=== PATIENT | male | born 1930 | race Caucasian/White ===

== ENCOUNTER 2017-06-09 17:22 | Outpatient (CLI) | payer MEDICARE, OTHER | END 2017-06-09 17:23 | disposition home or self-care (01) | LOC: LABBT 17:22 | PROVIDERS: ATTEND Specialist | DX: Z01.818 Encounter for other preprocedural examination (principal); M86.9 Osteomyelitis, unspecified ==

== ENCOUNTER 2017-06-10 10:58 | Day surgery (SDC) | payer MEDICARE, OTHER ==
--- NOTE | 2017-06-09 21:07 | HP ---
HISTORY OF PRESENT ILLNESS: Mr. Donavon Goddard is an 86-year-old male, allergic to CLINDAMYCIN, PEN ICILLIN and meropenem, presents today with exposed bone, left third toe and edema of his foot. He h as a PICC line for ceftriaxone administration at home for recent hip placement emergently. He is fo llowed by Dr. Laguna. He was recently hospitalized on 05/05/2017 to 05/09/2017 for dyspnea with syst olic heart failure managed by Cardiology service and Pulmonary Medicine. During the hospitalization , patient's daughter states that he was noted to have problems with his left third toe, but this was not addressed. His was recently treated for atrial fibrillation, RVR, acute on chronic heart failu re and possible reactive airway disease. On 05/15/2017, Dr. Dutta performed a right total hip a rthroplasty for septic right hip with advanced destructive changes. He is on intravenous antibiotic s for this. He has just finished cephalexin and is on Rocephin IV administered by his daughter. TOBACCO: None. ALCOHOL: None. 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 PAST SURGICAL HISTORY: Back surgery, knee surgery, colon surgery, hand surgery, thoracentesis, ampu tation of his left fourth toe and then I performed amputation of left second toe is performed elsewh ere, hernia repair, bilateral inguinal hernia repair and right carotid endarterectomy. ALLERGIES: CLINDAMYCIN, PENICILLIN and MEROPENEM. SOCIAL HISTORY: Tobacco cessation more than 60 years ago. PHYSICAL EXAMINATION: HEENT: Unremarkable. LUNGS: Clear to auscultation. CARDIAC: Regular rate and rhythm without murmur or gallop. ABDOMEN: Soft and nontender. EXTREMITIES: Unremarkable, deviated left great toe laterally. Left second toe wound well healed, s tatus post remote amputation, partial amputation of the left forth toe, left third toe has eroded ph alanx to the medial skin web space. ASSESSMENT: Osteomyelitis infection, left third toe. PLAN: Amputation of left third toe to the proximal phalanx. We will plan as an outpatient. [facility] health will be called; I asked to see him daily for wound care. He should keep his heels o ff the bed to prevent decubitus. We will give him antibiotics perioperatively and continued IV anti biotics postoperatively per Dr. Laguna. Follow up in my office in 2-3 weeks postoperatively.
[2017-06-10] MEDS ORDERED: Gentamicin 80 MG/2 ML VIAL ONE (12:01)
[2017-06-10] MEDS ORDERED: Fentanyl 100 MCG/2 ML VIAL ONE (12:13)
[2017-06-10] MEDS ORDERED: Bupivacaine HCl 0.5%/Epinephrine 1:200,000/PF 30 ml Vial ONE (12:15)
[2017-06-10] MEDS ORDERED: Ketorolac Tromethamine 30 MG/ML VIAL ONE (13:09)
--- NOTE | 2017-06-10 18:59 | OP ---
DATE OF PROCEDURE: 06/10/2017 PREOPERATIVE DIAGNOSES: Rheumatoid arthritis with osteomyelitis, left third toe with exposed bone, interphalangeal joint. PROCEDURE: Amputation of left third toe through the proximal phalanx. Wound left open to heal by s econdary intention. Good blood supply noted. Home health to visit him tomorrow, begin wound care. He has a PICC line to treat with antibiotics, undergoing, to see Dr. Laguna for other reasons. PROCEDURE IN DETAIL: The patient was taken to the operating room where under intravenous sedation, left lower extremity was prepared with chloraprep, draped in routine fashion. Amputation of left th ird toe was performed with circumferential incision around the third toe with dividing the bone of t he proximal phalanx, resection of the rongeurs and debriding connective tissue with good bleeding no bonita. Hemostasis gained with the cautery. Wound irrigated. Gauze dressing applied for secondary he aling. Home health to see him tomorrow for wound care.
== END 2017-06-10 17:38 | disposition home or self-care (01) ==
LOC: SDC 10:58
PROVIDERS: ATTEND Specialist
PROC: 0Y6U0Z1 Detachment at Left 3rd Toe, High, Open Approach (ICD-10-PCS; principal; 2017-06-10)
DX: M86.8X7 Other osteomyelitis, ankle and foot (principal); I50.42 Chronic combined systolic (congestive) and diastolic (congestive) heart failure; I11.0 Hypertensive heart disease with heart failure; I25.10 Atherosclerotic heart disease of native coronary artery without angina pectoris; I48.91 Unspecified atrial fibrillation; D64.9 Anemia, unspecified; Z98.890 Other specified postprocedural states; Z90.89 Acquired absence of other organs; Z96.1 Presence of intraocular lens; Z96.643 Presence of artificial hip joint, bilateral; Z88.1 Allergy status to other antibiotic agents; Z88.0 Allergy status to penicillin; Z87.891 Personal history of nicotine dependence
CPT/HCPCS: 88305; 88311; J0670; J1580; J1642; J1885; J3010; J3370

== ENCOUNTER 2017-07-11 23:50 | Inpatient (IN) | payer MEDICARE, OTHER ==
[2017-07-12] MEDS ORDERED: methylPREDNISolone Sod Succ/PF 125 MG/2 ML VIAL ONE (00:10)
[2017-07-12 00:40] LABS: #Basophils 0.1 thou/uL (0.0-0.2); #Eosinphils 0.6 thou/uL (0.0-0.7); #Neutrophils 8.4 thou/uL (1.40-6.50); %Basophils 0.5 % (0.0-1.0); %Eosinophils 4.6 % (0.0-10.0); %Lymphocytes 16.8 % (21.0-51.0); %Monocytes 8.3 % (0.0-10.0); Hematocrit 35.2 % (42.0-52.0); Mean Platelet Volume 6.4 fL (7.4-10.4); Red Blood Cell (RBC) Count 3.86 mill/uL (4.70-6.10)
[2017-07-12 00:40] LABS: Modified Allen's Test POSITIVE; Pressure Support 10 cmH2O; Sodium 138 mmol/L (135-148); Vent NO
[2017-07-12 00:41] LABS: Mode BIPAP
[2017-07-12 00:54] LABS: ALT (SGPT) 13 U/L (8-55); AST (SGOT) 18 U/L (5-34); Alkaline Phosphatase 152 U/L (40-150); Anion Gap 16 mmol/L (10-20); BUN (Urea Nitrogen) 38 mg/dL (8.4-25.7); Bilirubin, Total 0.7 mg/dL (0.2-1.2); Calc. Creatinine Clearance 0 mL/min (70-130); Carbon Dioxide 30 mmol/L (23-31); Chloride 100 mmol/L (98-107); Estimated GFR-MDRD 45; Globulin 2.9 g/dL (2.4-3.5)
[2017-07-12 00:58] LABS: Troponin I 0.019 ng/mL (< 0.028)
[2017-07-12] MEDS ORDERED: Cyclobenzaprine 10 MG TAB ONE (03:28)
[2017-07-12] MEDS ORDERED: Ondansetron ODT 4 MG TAB SL PRN (04:24)
[2017-07-12] MEDS ORDERED: Acetaminophen 325 MG TAB PO PRN ×2 (04:24→05:58)
[2017-07-12] MEDS ORDERED: Ondansetron HCl/PF 4 MG/2 ML Vial IVP PRN (04:24)
[2017-07-12] MEDS ORDERED: Lactated Ringer's 1,000 ML IV SCH (04:30)
--- NOTE | 2017-07-12 05:57 | PDOC.EVN ---
Event Note - Event Note Event Note: [id number] h&p dictated 1. Acute COPD Exacerbation 2. HTN 3. AFIB 4. H/O CHF 5. Chronic respiratory failure plan; see orders
[2017-07-12] MEDS ORDERED: Cyclobenzaprine 10 MG TAB PO PRN ×2 (05:58→11:59)
[2017-07-12] MEDS ORDERED: Albuterol Sulfate 1.25 MG/3 ML NEB NEB PRN (06:02)
[2017-07-12 06:23] LABS: #Lymphocytes 0.7 thou/uL (1.20-3.40); #Monocytes 0.1 thou/uL (0.11-0.59); #Neutrophils 5.8 thou/uL (1.40-6.50); %Basophils 0.4 % (0.0-1.0); %Eosinophils 0.5 % (0.0-10.0); %Lymphocytes 10.6 % (21.0-51.0); %Monocytes 1.9 % (0.0-10.0); Hematocrit 32.6 % (42.0-52.0); Mean Platelet Volume 6.3 fL (7.4-10.4); Red Blood Cell (RBC) Count 3.61 mill/uL (4.70-6.10); White Blood Cell (WBC) Count 6.7 thou/uL (4.8-10.8)
[2017-07-12 06:42] LABS: Anion Gap 15 mmol/L (10-20); BUN (Urea Nitrogen) 35 mg/dL (8.4-25.7); Calc. Creatinine Clearance 46 mL/min (70-130); Calcium 10.1 mg/dL (7.8-10.44); Carbon Dioxide 28 mmol/L (23-31); Chloride 101 mmol/L (98-107); Estimated GFR-MDRD 52
[2017-07-12] MEDS: Azithromycin 500 MG in Sodium Chloride 0.9% 250 ML 250 ML IVPB SCH (07:13)
--- NOTE | 2017-07-12 08:28 | RAD ---
CHEST 1 VIEW: Date: 07/12/17 COMPARISON: 06/04/17. HISTORY: Shortness of breath. FINDINGS: Portable upright chest demonstrates sternotomy wires. Normal cardiac silhouette. Pulmonary vessels a nd hilum are normal. Right costophrenic angle is clear. Stable opacification and blunting of left co stophrenic angle. Chronic changes are noted. No pneumothorax. No osseous abnormalities. Suture chain in the right hemithorax is noted. IMPRESSION: Chronic changes. POS: [facility]
[2017-07-12] MEDS ORDERED: FLU VACC TS2017-18 (>65YR) 0.5 ML SYRINGE IM ONE (09:00)
[2017-07-12] MEDS: Lisinopril 2.5 MG TAB PO SCH (10:03)
[2017-07-12] MEDS: Polyethylene Glycol 3350 17 GM Packet PO SCH (10:04)
[2017-07-12] MEDS: Allopurinol 100 MG TAB PO SCH (10:04)
[2017-07-12] MEDS: Aspirin 325 MG TAB PO SCH (10:04)
[2017-07-12] MEDS: Digoxin 0.125 MG TAB PO SCH (10:05)
[2017-07-12] MEDS: Furosemide 40 MG TAB PO SCH (10:08)
[2017-07-12] MEDS ORDERED: Guaifenesin DM 100-10/5 ML UDCUP PO PRN (11:19)
[2017-07-12] MEDS ORDERED: Benzonatate 100 MG CAP PO PRN (11:19)
[2017-07-12] MEDS ORDERED: Polyethylene Glycol 3350 17 GM Packet PO PRN (11:19)
[2017-07-12] MEDS ORDERED: guaiFENesin ER 600 MG TAB PO SCH (12:00)
--- NOTE | 2017-07-12 12:29 | PDOC.EVN ---
Event Note - Event Note Event Note: Pt seen and examined.chart Reviewed in detail. feels much better.breathing easier . VSS. NAD No wheezing.loud rhonchi. c/o muscle twitiching in right leg giving pain in hip. labs reviewed.Cr improving .BNP 165.WBC trending down towards normal. cont nebs, steroids,add muscle relaxant,cough medicine.IS,Mucinex. PCCM recs requested.
[2017-07-12] MEDS ORDERED: Mometasone/Formoterol 120 PUFF INHALER INH SCH (14:15)
[2017-07-12] MEDS: HYDROcodone/Acetaminophen 5/325 mg Tablet PO PRN ×2 (15:54→23:36)
--- NOTE | 2017-07-12 17:28 | HP ---
DATE OF ADMISSION: 07/12/2017 CHIEF COMPLAINT: Dyspnea and cough. HISTORY OF PRESENT ILLNESS: The patient is an 86-year-old male with past medical history of hyperte nsion, AFIB, COPD, CHF, coronary artery disease, chronic respiratory failure, started having cough, with severe dyspnea. The patient tried some breathing treatments in the skilled nursing/skilled and di d not improve, patient was found to have hypoxia with oxygen sats around 70%, so the patient was mario mary on BiPAP and brought to the ER. Upon ER arrival, the patient's dyspnea persisted, so patient wa s given breathing treatments and IV steroids. The patient is currently off BiPAP. The patient isael es any chest pain, denies any palpations. Complains of some chest congestion and cough associated w ith some white sputum production. Denies any fever, denies any chills, denies nausea, and denies vo miting. PAST MEDICAL HISTORY: As per HPI. PAST SURGICAL HISTORY: CABG. SOCIAL HISTORY: Denies smoking, denies alcohol, denies any drugs. Currently living in a skilled unm hospitaling facility due to weakness. FAMILY HISTORY: Positive for heart problems. REVIEW OF SYSTEMS: Constitutional: Denies any fever, denies any chills. Eyes: Denies any vision problems. Ears: Denies any hearing loss. Neck: Denies any neck pain. Cardiovascular System: De nies any chest pain. Denies any palpitations. Respiratory System: Positive for cough and sputum p roduction. Cranial Nerves System: Denies syncope, denies lightheadedness. Psychiatric: Denies an xiety. Integument: Denies any rash. All other review of systems are reviewed and they are negativ e. PHYSICAL EXAMINATION: CONSTITUTIONAL/VITAL SIGNS: At the time of H\T\P performed, blood pressure is 133/69, pulse ox 96%, heart rate 85. GENERAL: This patient appears tired. HEENT: Anterior nares patent. Nose normal. Ears normal. Teeth intact. Tongue is moist. NECK: Supple. No JVD. CARDIOVASCULAR SYSTEM: S1 and S2 present, regular rate and rhythm. No murmurs, no rubs, no gallops . RESPIRATORY SYSTEM: Diminished breath sounds present. Positive for occasional wheezing. No rhonch i. Normal effort. GASTROINTESTINAL: Abdomen is soft, nontender, no guarding, no organomegaly, no masses felt. MUSCULOSKELETAL: No edema. INTEGUMENTARY: No obvious rashes seen. PSYCHIATRIC: Mood appropriate at this time. CRANIAL NERVE SYSTEM: Awake. Follows commands. Speech, clear. Complains of decreased hearing, wh ich was chronic. LABORATORY DATA: At the time of H\T\P performed, white count 12, hemoglobin 11.4, and platelet coun t is 260,000. Blood gas showed pH 7.41, pCO2 44, pO2 131, bicarbonate is 27.5. BMP showed sodium 1 41, potassium 4.5, chloride 100, CO2 of 30, BUN 38, creatinine 1.50. Troponin 0.030. ASSESSMENT AND PLAN: The patient is an 86-year-old male. 1. Acute chronic obstructive pulmonary disease exacerbation. Plan to start patient on breathing tr eatments and IV steroids. Plan to monitor respiratory status closely. 2. Acute bronchitis plus condition. Plan to give Zithromax 500 mg IV daily. We will monitor patient closely. 3. History of hypertension. Monitor blood pressure. Continue blood pressure meds. 4. History of atrial fibrillation. Monitor heart rate closely. Continue home medications. 5. History of chronic respiratory failure. Continue oxygen nasal cannula. Monitor respiratory sta tus closely. Case was discussed in detail with the patient.
[2017-07-12 18:30] LABS: Troponin I 0.034 ng/mL (< 0.028)
[2017-07-12] MEDS: Cyclobenzaprine 10 MG TAB PO PRN (18:36)
[2017-07-12] MEDS: Mometasone/Formoterol 120 PUFF INHALER INH SCH (18:52)
[2017-07-12] MEDS ORDERED: Furosemide 20 MG/2 ML VIAL SLOW IVP SCH (20:00)
[2017-07-12] MEDS ORDERED: Potassium Chloride 20 MEQ TAB PO SCH (20:00)
[2017-07-12] MEDS: Saccharomyces boulardii 250 MG CAP PO SCH (20:32)
[2017-07-12] MEDS: Docusate 100 MG CAP PO SCH (20:32)
[2017-07-12] MEDS: guaiFENesin ER 600 MG TAB PO SCH (20:32)
[2017-07-13] MEDS: Azithromycin 500 MG in Sodium Chloride 0.9% 250 ML 250 ML IVPB SCH (06:03)
[2017-07-13] MEDS: Mometasone/Formoterol 120 PUFF INHALER INH SCH ×2 (07:02→18:34)
[2017-07-13] MEDS: Digoxin 0.125 MG TAB PO SCH (09:24)
[2017-07-13] MEDS: Polyethylene Glycol 3350 17 GM Packet PO SCH (09:24)
[2017-07-13] MEDS: Tamsulosin HCl 0.4 MG CAP PO SCH (09:24)
[2017-07-13] MEDS: Aspirin 325 MG TAB PO SCH (09:24)
[2017-07-13] MEDS: guaiFENesin ER 600 MG TAB PO SCH ×2 (09:24→21:02)
[2017-07-13] MEDS: Lisinopril 2.5 MG TAB PO SCH (09:24)
[2017-07-13] MEDS: Docusate 100 MG CAP PO SCH ×2 (09:24→21:02)
[2017-07-13] MEDS: Allopurinol 100 MG TAB PO SCH (09:26)
[2017-07-13] MEDS: Furosemide 40 MG TAB PO SCH (09:26)
[2017-07-13] MEDS: Saccharomyces boulardii 250 MG CAP PO SCH ×2 (09:27→21:01)
--- NOTE | 2017-07-13 11:29 | PDOC.PN ---
- Subjective Encounter Start Date: 07/13/17 Encounter Start Time: 07:40 Subjective: breathing better, no chest pain - Objective MAR Reviewed: Yes Vital Signs & Weight: Vital Signs (12 hours) Temp Pulse Resp BP BP Pulse Ox 07/13/17 10:21 69 16 07/13/17 09:24 77 161/74 H 07/13/17 08:00 97.6 F 62 20 161/74 H 96 07/13/17 07:02 77 16 07/13/17 06:53 99 07/13/17 06:51 77 16 07/13/17 04:00 96.6 F L 60 20 112/55 L 97 07/13/17 02:21 79 16 98 07/13/17 00:00 97.6 F 83 20 115/55 L 100 Weight Weight 171 lb 8 oz I&O: 07/12/17 07/13/17 07/14/17 06:59 06:59 06:59 Intake Total 1520 Output Total 1625 Balance -105 Result Diagrams: 07/12/17 06:07 07/12/17 06:07 Phys Exam - Physical Examination HEENT: PERRLA, moist MMs Neck: no JVD, supple Respiratory: no wheezing, no rales rhonchi++ Cardiovascular: RRR, no significant murmur Gastrointestinal: soft, non-tender, positive bowel sounds Musculoskeletal: no edema, pulses present Neurological: non-focal, moves all 4 limbs Psychiatric: A&O x 3 Dx/Plan (1) COPD exacerbation Code(s): J44.1 - CHRONIC OBSTRUCTIVE PULMONARY DISEASE W (ACUTE) EXACERBATION Status: Acute (2) Demand ischemia of myocardium Code(s): I24.8 - OTHER FORMS OF ACUTE ISCHEMIC HEART DISEASE Status: Acute (3) Acute respiratory failure with hypoxia Code(s): J96.01 - ACUTE RESPIRATORY FAILURE WITH HYPOXIA Status: Acute (4) CAD (coronary artery disease) Code(s): I25.10 - ATHSCL HEART DISEASE OF [place] CORONARY ARTERY W/O ANG PCTRS Status: Chronic Qualifiers: Coronary Disease-Associated Artery/Lesion type: bypass graft [place] vs. transplanted heart: [place] heart Associated angina: without angina Qualified Code(s): I25.810 - Atherosclerosis of coronary artery bypass graft(s) without angina pectoris (5) CHF (congestive heart failure) Code(s): I50.9 - HEART FAILURE, UNSPECIFIED Status: Chronic Comment: mixed type, ef 45% (6) HTN (hypertension) Code(s): I10 - ESSENTIAL (PRIMARY) HYPERTENSION Status: Chronic Qualifiers: Hypertension type: essential hypertension Qualified Code(s): I10 - Essential (primary) hypertension (7) Mantle cell lymphoma Code(s): C83.10 - MANTLE CELL LYMPHOMA, UNSPECIFIED SITE Status: Chronic Qualifiers: (8) Moderate aortic stenosis by prior echocardiogram Code(s): I35.0 - NONRHEUMATIC AORTIC (VALVE) STENOSIS Status: Chronic - Plan will continue iv steroids, duonebs, empiric zithromax -: mild demand ischemia with trop of 0.03 -: has had recent right hip surgery, PT to mobilize pt per ortho advice -: dc plan in 24-36hrs * . 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" Penicillins Allergy Intermediate Swollen Verified 05/10/17 14:21 Lips meropenem Allergy Rash Verified 05/10/17 14:21 morphine Allergy Verified 07/12/17 08:53 Medications: Current Medications Acetaminophen (Tylenol) 650 mg PO Q4H PRN PRN Reason: Headache/Fever or Pain Hydrocodone Bitart/Acetaminophen (Evans 5/325) 1 tab PO Q4H PRN PRN Reason: Pain Last Admin: 07/12/17 23:36 Dose: 1 tab Albuterol Sulfate (Albuterol Sulfate) 1.25 mg NEB Q2H PRN PRN Reason: Wheezing or Cough Albuterol/Ipratropium (Duoneb) 3 ml NEB [id number] TIMMY Allopurinol (Zyloprim) 200 mg PO DAILY TIMMY Last Admin: 07/13/17 09:26 Dose: 200 mg Aspirin (Aspirin) 325 mg PO DAILY TIMMY Last Admin: 07/13/17 09:24 Dose: 325 mg Benzonatate (Tessalon) 100 mg PO Q8H PRN PRN Reason: Cough Cyclobenzaprine HCl (Flexeril) 5 mg PO TID PRN PRN Reason: Muscle Spasm Last Admin: 07/12/17 18:36 Dose: 5 mg Digoxin (Lanoxin) 0.125 mg PO DAILY [facility] Last Admin: 07/13/17 09:24 Dose: 0.125 mg Docusate Sodium (Colace) 100 mg PO BID [facility] Last Admin: 07/13/17 09:24 Dose: 100 mg Furosemide (Lasix) 40 mg PO DAILY [facility] Last Admin: 07/13/17 09:26 Dose: 40 mg Guaifenesin (Mucinex) 600 mg PO Q12HR [facility] Last Admin: 07/13/17 09:24 Dose: 600 mg Guaifenesin/Dextromethorphan (Robitussin Dm) 5 ml PO Q4H PRN PRN Reason: Cough Azithromycin 500 mg/ Sodium (Chloride) 250 mls @ 250 mls/hr IVPB 0630 [facility] Last Admin: 07/13/17 06:03 Dose: 250 mls Lisinopril (Zestril) 1.25 mg PO DAILY [facility] Last Admin: 07/13/17 09:24 Dose: 1.25 mg Methylprednisolone Sodium Succinate (Solu-Medrol) 40 mg IVP Q6HR [facility] Metoprolol Succinate (Toprol Xl) 12.5 mg PO DAILY [facility] Last Admin: 07/13/17 09:27 Dose: 12.5 mg Mometasone Furoate/Formoterol Fumar (Dulera 100 Mcg/5 Mcg Inhaler) 1 puff INH BID-RT [facility] Last Admin: 07/13/17 07:02 Dose: 1 puff Pantoprazole Sodium (Protonix) 40 mg PO Q24HR [facility] Last Admin: 07/13/17 06:03 Dose: 40 mg Polyethylene Glycol (Miralax) 17 gm PO QAM [facility] Last Admin: 07/13/17 09:24 Dose: 17 gm Polyethylene Glycol (Miralax) 17 gm PO DAILY PRN PRN Reason: Constipation Saccharomyces Boulardii (Florastor) 250 mg PO BID [facility] Last Admin: 07/13/17 09:27 Dose: 250 mg Tamsulosin HCl (Flomax) 0.4 mg PO DAILY [facility] Last Admin: 07/13/17 09:24 Dose: 0.4 mg
[2017-07-13] MEDS: Cyclobenzaprine 10 MG TAB PO PRN (11:58)
[2017-07-13] MEDS: HYDROcodone/Acetaminophen 5/325 mg Tablet PO PRN (11:59)
--- NOTE | 2017-07-13 18:25 | CON ---
DATE OF CONSULTATION: 07/13/2017 HISTORY OF PRESENT ILLNESS: Mr. Goddard is a pleasant patient who is [address] Estuardo esparza with systolic/diastolic heart failure and COPD admitted to hospital for recurrent shortness of allyson ath. The patient came to the hospital yesterday with increasing shortness of breath. He did receive some inhaled bronchodilators and one dose of IV Lasix last night and he says he was breathing somewhat b butch, but still not back to his baseline. Patient was on BiPAP in the initial part of this hospita lization. PAST MEDICAL HISTORY: 1. COPD. 2. Systolic and diastolic heart failure. PAST SURGICAL HISTORY: Previous bypass surgery. SOCIAL HISTORY: Lives in a fpc. No smoking, no alcohol. Lives in a [facility]. FAMILY HISTORY: Positive for coronary disease. REVIEW OF SYSTEMS: Constitutional: Positive for weakness, fatigue. Vision: No changes. Hearing: No changes. Pulmonary: No cough or wheezing. Positive for shortness of breath. Cardiac: Posit stephon for shortness of breath. Gastrointestinal: No nausea, vomiting, diarrhea. Skin: No rashes. Neurologic: No unilateral weakness or numbness. Psychiatric: No unusual depression or anxiety. H ematologic: No unusual bruising. Genitourinary: No burning with urination. Musculoskeletal: No unusual joint pains. PHYSICAL EXAMINATION: GENERAL: A very delightful elderly gentleman, 86 years of age. VITAL SIGNS: His blood pressure is 135/62, pulse 72 and regular. EYES: Sclerae nonicteric. Mouth mucous membranes moist. NECK: Supple, no lymphadenopathy. LUNGS: Clear. No wheezing, rales or rhonchi. CARDIOVASCULAR: Irregularly irregular. Normal S1, normal S2. There is no murmur, rub or gallop. ABDOMEN: Soft, nontender, no hepatosplenomegaly. EXTREMITIES: Warm, dry, no clubbing or cyanosis. There is currently no edema. PERTINENT LABORATORY AND X-RAY FINDINGS: BNP was 165, creatinine is 1.5 and 1.3 cm this morning. T roponin 0.34. ASSESSMENT: 1. Congestive heart failure, systolic and diastolic combined. 2. Chronic obstructive pulmonary disease. 3. Previous bypass surgery. PLAN: 1. We will give one additional dose of Lasix and I gave him one dose last night of furosemide. 2. Dr. Cárdenas to resume patient's care in the morning. ADDENDUM: The patient also is in atrial fibrillation with a slow ventricular response. The heart rate is in t he 80s at times but sometimes slower. We will discontinue metoprolol at this time. Dr. Cárdenas i s to address the issue of whether anticoagulation would be indicated.
[2017-07-13] MEDS ORDERED: Furosemide 20 MG/2 ML VIAL SLOW IVP SCH (18:30)
[2017-07-13] MEDS ORDERED: Ibuprofen 200 MG TAB PO SCH (18:30)
[2017-07-13] MEDS ORDERED: Potassium Chloride 20 MEQ TAB PO SCH (18:30)
[2017-07-14] MEDS: Cyclobenzaprine 10 MG TAB PO PRN ×2 (03:20→15:01)
[2017-07-14] MEDS: HYDROcodone/Acetaminophen 5/325 mg Tablet PO PRN ×2 (03:25→15:01)
[2017-07-14] MEDS: Azithromycin 500 MG in Sodium Chloride 0.9% 250 ML 250 ML IVPB SCH (05:34)
[2017-07-14] MEDS: Mometasone/Formoterol 120 PUFF INHALER INH SCH (06:52)
[2017-07-14 07:25] LABS: #Lymphocytes 0.9 thou/uL (1.20-3.40); #Monocytes 0.3 thou/uL (0.11-0.59); #Neutrophils 8.7 thou/uL (1.40-6.50); %Basophils 0.2 % (0.0-1.0); %Eosinophils 0.2 % (0.0-10.0); %Lymphocytes 9.3 % (21.0-51.0); %Monocytes 2.5 % (0.0-10.0); Hematocrit 30.1 % (42.0-52.0); Mean Platelet Volume 6.5 fL (7.4-10.4); Red Blood Cell (RBC) Count 3.29 mill/uL (4.70-6.10); White Blood Cell (WBC) Count 9.9 thou/uL (4.8-10.8)
[2017-07-14 07:52] LABS: Anion Gap 14 mmol/L (10-20); BUN (Urea Nitrogen) 50 mg/dL (8.4-25.7); Calc. Creatinine Clearance 43 mL/min (70-130); Calcium 9.3 mg/dL (7.8-10.44); Carbon Dioxide 26 mmol/L (23-31); Chloride 102 mmol/L (98-107); Estimated GFR-MDRD 49
[2017-07-14] MEDS ORDERED: predniSONE 20 MG TAB PO SCH (08:00)
[2017-07-14] MEDS: Allopurinol 100 MG TAB PO SCH (08:32)
[2017-07-14] MEDS: Aspirin 325 MG TAB PO SCH (08:41)
[2017-07-14] MEDS: Digoxin 0.125 MG TAB PO SCH (08:41)
[2017-07-14] MEDS: Docusate 100 MG CAP PO SCH (08:42)
[2017-07-14] MEDS: Lisinopril 2.5 MG TAB PO SCH (08:42)
[2017-07-14] MEDS: guaiFENesin ER 600 MG TAB PO SCH (08:42)
[2017-07-14] MEDS: Furosemide 40 MG TAB PO SCH (08:42)
[2017-07-14] MEDS: Saccharomyces boulardii 250 MG CAP PO SCH (08:43)
[2017-07-14] MEDS: Tamsulosin HCl 0.4 MG CAP PO SCH (08:43)
[2017-07-14] MEDS: Polyethylene Glycol 3350 17 GM Packet PO SCH (08:43)
--- NOTE | 2017-07-14 11:36 | CON ---
DATE OF CONSULTATION: 07/14/2017 CONSULTING PHYSICIAN: Hospitalist group. REASON FOR CONSULTATION: Shortness of breath. HISTORY OF PRESENT ILLNESS: The patient is an 86-year-old male who was hospitalized several days ag o with shortness of breath. He had been staying over in rehabilitation after previous hospitalizati on. He has better and feels like he wants to go home now. PAST MEDICAL HISTORY: 1. Remarkable for atrial fibrillation. 2. Congestive heart failure. 3. Coronary artery disease. 4. Chronic respiratory failure requiring oxygen. 5. Asthmatic. 6. Hemothorax after anticoagulation for atrial fibrillation. PAST SURGICAL HISTORY: 1. Left thoracentesis. 2. Right knee surgery. 3. Colon resection. 4. Coronary artery bypass grafting surgery. 5. Right foot surgery. 6. Hernia repair. 7. Carotid endarterectomy. SOCIAL HISTORY: Nonsmoker, does not consume alcohol. ALLERGIES: CLINDAMYCIN, PENICILLIN, MEROPENEM and MORPHINE. MEDICATIONS: Prior to admission, Flomax, Theragran, Tessalon Perles, Robitussin, Protonix, [place], M iraLax, Toprol, ipratropium, albuterol, Lasix, Lanoxin, Colace, aspirin, allopurinol. REVIEW OF SYSTEMS: Otherwise, negative. PHYSICAL EXAMINATION: VITAL SIGNS: Temperature 97.7, pulse 83, blood pressure 155/67, O2 sat 97% on 2 liters. GENERAL: He is awake, alert, and in no distress. HEENT: Unremarkable. NECK: No JVD. LUNGS: Clear. CARDIAC: S1, S2 irregularly irregular. ABDOMEN: Soft. EXTREMITIES: No edema. LABORATORY DATA: Sodium 137, potassium 3.7, BUN 50, creatinine 1.4, glucose 155. White blood cell count 9.9, hematocrit 30, platelet count 246. X-RAY FINDINGS: Chest x-ray showed hyperinflation and he has old chronic changes in the left base, but no overt edema. ASSESSMENT: 1. Reactive airway disease - currently stable with nebulization treatments. 2. History of congestive heart failure, systolic and diastolic. 3. Previous history of left hemothorax. PLAN: I think he is stable enough to go home. He has oxygen, breathing treatments at home. [facility] care per Cardiology.
[2017-07-14 11:50] VITALS: BP 136/66; TEMP 97.6
[2017-07-14 14:17] VITALS: BMI 22.7
--- NOTE | 2017-07-14 14:33 | PDOC.PN ---
- Subjective Encounter Start Date: 07/14/17 Encounter Start Time: 08:40 Subjective: feels good, wants to go home - Objective MAR Reviewed: Yes Vital Signs & Weight: Vital Signs (12 hours) Temp Pulse Pulse Pulse Resp BP BP 07/14/17 14:01 73 15 07/14/17 11:48 97.6 F 82 18 07/14/17 09:25 72 96 157/70 H 07/14/17 08:42 73 155/67 H 07/14/17 08:41 73 07/14/17 08:21 97.7 F 73 18 07/14/17 06:51 68 14 07/14/17 04:00 98.0 F 78 20 BP Pulse Ox Pulse Ox Pulse Ox 07/14/17 14:01 95 07/14/17 11:48 136/66 93 L 07/14/17 09:25 98 90 L 07/14/17 08:42 07/14/17 08:41 07/14/17 08:21 155/67 H 97 07/14/17 06:51 100 07/14/17 04:00 150/70 H 94 L Weight Admit Weight 169 lb 1 oz Weight 167 lb 14.4 oz I&O: 07/13/17 07/14/17 07/15/17 06:59 06:59 06:59 Intake Total 1520 1415 Output Total 1625 2595 Balance -105 -1180 Result Diagrams: 07/14/17 07:10 07/14/17 07:10 Phys Exam - Physical Examination HEENT: PERRLA, moist MMs Neck: no JVD, supple Respiratory: no wheezing, no rales Cardiovascular: RRR, no significant murmur Gastrointestinal: soft, non-tender, positive bowel sounds Musculoskeletal: no edema, pulses present Neurological: non-focal, moves all 4 limbs Psychiatric: A&O x 3 Dx/Plan (1) COPD exacerbation Code(s): J44.1 - CHRONIC OBSTRUCTIVE PULMONARY DISEASE W (ACUTE) EXACERBATION Status: Acute (2) Demand ischemia of myocardium Code(s): I24.8 - OTHER FORMS OF ACUTE ISCHEMIC HEART DISEASE Status: Acute (3) Acute respiratory failure with hypoxia Code(s): J96.01 - ACUTE RESPIRATORY FAILURE WITH HYPOXIA Status: Acute (4) CAD (coronary artery disease) Code(s): I25.10 - ATHSCL HEART DISEASE OF [place] CORONARY ARTERY W/O ANG PCTRS Status: Chronic Qualifiers: Coronary Disease-Associated Artery/Lesion type: bypass graft [place] vs. transplanted heart: [place] heart Associated angina: without angina Qualified Code(s): I25.810 - Atherosclerosis of coronary artery bypass graft(s) without angina pectoris (5) CHF (congestive heart failure) Code(s): I50.9 - HEART FAILURE, UNSPECIFIED Status: Chronic Comment: mixed type, ef 45% (6) HTN (hypertension) Code(s): I10 - ESSENTIAL (PRIMARY) HYPERTENSION Status: Chronic Qualifiers: Hypertension type: essential hypertension Qualified Code(s): I10 - Essential (primary) hypertension (7) Mantle cell lymphoma Code(s): C83.10 - MANTLE CELL LYMPHOMA, UNSPECIFIED SITE Status: Chronic Qualifiers: (8) Moderate aortic stenosis by prior echocardiogram Code(s): I35.0 - NONRHEUMATIC AORTIC (VALVE) STENOSIS Status: Chronic - Plan hemostable -: may dc home if ok with cardiology -: HH needs to reactivated with nursing and PT -: to f/u with (needs to reschedule his appt) * .
--- NOTE | 2017-07-14 14:58 | DIS ---
DATE OF ADMISSION: 07/12/2017 DATE OF DISCHARGE: 07/14/2017 PRIMARY DISCHARGE DIAGNOSES: Chronic obstructive pulmonary disease exacerbation ; acute respiratory failure with hypoxia, resolved; mild congestive heart failure exacerbation with ejection fraction of around 45%; demand ischemia. SECONDARY DISCHARGE DIAGNOSES: Coronary artery disease, hypertension, history of mantle cell lymphoma, moderate aortic stenosis. PROCEDURES DONE DURING HOSPITALIZATION: The patient has had chest x-ray done, which showed chronic changes with no acute infiltrate. Blood cultures x2, no growth. Influenza A and B antigens were negative. H and H 9.5 and 30 and platelet count 246. Discharge BUN and creatinine are 50 and 1.3, troponin I peaking up to 0.03. BNP 165. DISCHARGE MEDICATIONS: Albuterol nebulizer twice daily, allopurinol 200 mg p.o. daily, aspirin 81 mg p.o. daily, Flexeril p.r.n., digoxin 0.125 mg p.o. daily, Colace 100 mg p.o. twice daily, Lasix 20 mg p.o. daily, Chestnut p.r.n. for pain, Toprol-XL 25 mg p.o. daily, Protonix 40 mg p.o. daily, MiraLax 17 grams p.o. daily, Flomax 0.4 mg p.o. daily. ALLERGIES: CLINDAMYCIN, PENICILLIN, MEROPENEM, and MORPHINE. INPATIENT CONSULTS: Dr. Merida for Cardiology and Dr. Rodriguez for Pulmonology. BRIEF COURSE DURING HOSPITALIZATION: Patient initially came in with complaints of shortness of breath and coughing. His initial saturations were 70% on room air and was placed on BiPAP. He was diagnosed with acute on chronic COPD exacerbation and mild CHF exacerbation. The patient was on IV steroids along with gentle diuresis done. He was evaluated by Dr. Merida for Cardiology and Dr. Rodriguez for Pulmonology. The patient has done remarkably well during his brief stay here. This morning he is wanting to go home. He has had history of right hip surgery and toe amputation done few weeks ago and was in rehabilitation prior to going home and then getting hospitalized now. He had mild atrial fibrillation with RVR. He needs to follow up with primary care physician in [address] Merida as advised. The patient also needs to follow up with Dr. Dutta his orthopedic surgeon in 2 weeks or so. He had a followup appointment today, which he is not able to go and needs to reschedule calling Dr. Dutta's office for the same. Please see the [id number] documentation on [facility] for the day of discharge. Addendum: please see event note on 07/17/2017. BRUCE
--- NOTE | 2017-07-16 14:22 | PDOC.EVN ---
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 Informed discharging physician Dr. Montanez.
--- NOTE | 2017-07-17 10:20 | PDOC.EVN ---
Event Note - Event Note Event Note: D/w patients PCP about 1/2 blood cs growing aerobic actinomyces. D/w : its likely contaminant with normal wbc and him not being on current chemo or steroids. 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 If pt were to have signs of sepsis/fever he will need repeat cultures and likely hospitalization. Patient will need to be seen by in his office to see if his foot is healing well, he already has appt with for his right hip on .
== END 2017-07-14 15:55 | disposition home health service (06) | DRG 190 ==
LOC: ERS 23:50 → ERHOLD 07-12 01:44 → 2NO 07-12 04:19 → OBSVTOIN 07-12 15:36
PROVIDERS: ADMIT Internal Medicine; ATTEND Internal Medicine
PROC: 5A09457 Assistance with Respiratory Ventilation, 24-96 Consecutive Hours, Continuous Positive Airway Pressure (ICD-10-PCS; principal; 2017-07-12)
DX: J44.1 Chronic obstructive pulmonary disease with (acute) exacerbation (principal); J96.21 Acute and chronic respiratory failure with hypoxia; I50.43 Acute on chronic combined systolic (congestive) and diastolic (congestive) heart failure; I24.8 Other forms of acute ischemic heart disease; I25.810 Atherosclerosis of coronary artery bypass graft(s) without angina pectoris; C83.10 Mantle cell lymphoma, unspecified site; I35.0 Nonrheumatic aortic (valve) stenosis; J44.0 Chronic obstructive pulmonary disease with (acute) lower respiratory infection; I48.91 Unspecified atrial fibrillation; J20.9 Acute bronchitis, unspecified; I11.0 Hypertensive heart disease with heart failure; Z95.1 Presence of aortocoronary bypass graft; Z88.1 Allergy status to other antibiotic agents; Z88.5 Allergy status to narcotic agent; Z88.0 Allergy status to penicillin; Z99.81 Dependence on supplemental oxygen; Z82.49 Family history of ischemic heart disease and other diseases of the circulatory system
CPT/HCPCS: 36415; 71010; 80048; 80053; 82553; 82805; 83880; 84484; 85025; 87040; 90471; 90682; 93005; 94640; 94664; 96374; A4216; G0008; G8978-GP-CI; G8979-GP-CI; G8980-GP-CI; J0456; J1940; J2920; J2930; J7050; J7506; J7620; Q2036

== ENCOUNTER 2017-08-21 09:54 | Outpatient (CLI) | payer MEDICARE, OTHER ==
[~2017-08-21 09:54] MED LIST: Gadobenate Dimeglumine 529 MG/1 ML (20ML VIAL) ONE
--- NOTE | 2017-08-21 14:36 | RAD ---
LUMBAR SPINE 2 VIEWS: HISTORY: An 86-year-old male with post-laminectomy syndrome. Low back pain. FINDINGS: Exam includes standing flexion and extension lateral views. COMPARISON: 02/03/17. Minimal stable vertical height loss of L1. Generalized spondylosis. No evidence of anterior ore ret rolisthesis. No abnormal translation between flexion and extension. IMPRESSION: Lumbar spondylosis. Stable mild vertical height loss of L1. No abnormal translation. POS: [facility]
--- NOTE | 2017-08-21 15:06 | MRI ---
MRI OF THE LUMBAR SPINE WITH AND WITHOUT CONTRAST: Date: 08/21/17 COMPARISON: Noncontrast enhanced MRI of the lumbar spine performed 01/05/17. HISTORY: Post laminectomy syndrome, weakness, and right-sided leg pain. TECHNIQUE: Multiplanar, multisequence MR imaging of the lumbar spine is provided with and without contrast. FINDINGS: The sagittal STIR imaging demonstrates no focal area of osseous marrow edema. There is mild anterior wedging of the L1 vertebral body suggesting remote fracture. Assuming five lumbar-type vertebral bodies, the conus medullaris terminates at the L1-2 level. T12-L1: Mild bilateral facet hypertrophy. There is disc space narrowing and disc desiccation. There is no sig nificant central canal or neural foraminal stenosis. L1-2: Mild bilateral facet hypertrophy. Intervertebral disc height and signal intensity is within normal li mits with no significant central canal or neural foraminal stenosis. L2-3: Mild bilateral facet hypertrophy. There is disc space narrowing, disc desiccation, and disc bulge wit h no significant central canal or neural foraminal stenosis. L3-4: There is moderate bilateral facet hypertrophy and hypertrophy of the ligamentum flavum with fluid wit hin bilateral facet joints. There is mild right neural foraminal stenosis. No significant left neural foraminal stenosis or central canal stenosis. L4-5: Bilateral laminectomy changes are noted. There is disc space narrowing, disc desiccation, and disc bu lge. There is no central canal stenosis. There is bilateral facet hypertrophy with mild left and mode rate right neural foraminal stenosis. L5-S1: There is bilateral facet hypertrophy. There is disc space narrowing and disc desiccation. There is a left paracentral/left foraminal annular tear. There is no significant central canal or neural foramin al stenosis. The postcontrast imaging demonstrates no abnormal enhancement involving the intervertebral discs or t he imaged osseous structures. However, there is ring enhancing lesion measuring 8.0 mm within the the steve sac, to the right of midline, which appears to be associated with or immediately adjacent to the right S2 nerve root. No additional intrathecal enhancing lesions are noted. The imaged retroperitoneal structures demonstrate no acute findings. When compared to the prior MRI of the lumbar spine performed on 01/05/14, the above described enhanci ng lesion appears to have been present on that exam, unchanged in size, measuring approximately 7.0 m m in craniocaudal dimension. There is a focus of altered signal intensity with the superior posterior aspect of the left iliac win g measuring 1.2 cm, which demonstrates decreased T1 and T2 signal, with no appreciable enhancement, u nchanged since the 2014 exam as well. IMPRESSION: 1. There is an enhancing lesion along the course of and/or emanating from the right nerve root. Stab ility over time suggests a benign etiology. Primary consideration is for a nerve sheath tumor, which would include schwannoma. 2. Degenerative and postoperative changes within the lumbar spine as detailed above, most prominent at L4-5, right greater than left. CODE T. POS: [facility]
== END 2017-08-21 09:55 | disposition home or self-care (01) ==
LOC: SCSMRI 09:54
PROVIDERS: ATTEND Nurse Practitioner Family
DX: M96.1 Postlaminectomy syndrome, not elsewhere classified (principal); M47.896 Other spondylosis, lumbar region; G58.9 Mononeuropathy, unspecified; Z98.890 Other specified postprocedural states
CPT/HCPCS: 72100; 72158; A9579

== ENCOUNTER 2017-11-28 07:21 | Emergency (ER) | payer MEDICARE, OTHER ==
--- NOTE | 2017-11-28 08:50 | RAD ---
UPRIGHT PORTABLE CHEST 1 VIEW: Date: 11/28/17 HISTORY: 87-year-old male with history of chest pain that began this morning. COMPARISON: 07/12/17. FINDINGS: Monitor leads overlie the chest. Inspiration is decreased compared to the prior study. There appear t o be overall stable pleural and parenchymal opacity changes bilaterally, particularly in the lung bas es, greater on the left side, with some postoperative changes in the right mid chest and biapical ple ural thickening. Postop midline sternotomy. Atherosclerosis of aorta with ectasia. IMPRESSION: Overall stable appearing bilateral pleural and parenchymal opacity changes and postoperative change. No confluent pneumonia, overt edema, or pleural effusion. POS: [facility]
[2017-11-28 08:57] LABS: #Eosinphils 0.1 thou/uL (0.0-0.7); #Lymphocytes 0.9 thou/uL (1.20-3.40); #Monocytes 0.6 thou/uL (0.11-0.59); #Neutrophils 5.4 thou/uL (1.40-6.50); %Basophils 0.6 % (0.0-1.0); %Monocytes 8.3 % (0.0-10.0); %Neutrophils 76.1 % (42.0-75.0); Hemoglobin 11.6 g/dL (14.0-18.0); Mean Corpuscular HGB CONC 32.7 g/dL (32.0-36.0); Mean Corpuscular Hemoglobin 31.2 pg (27.0-31.0); Mean Corpuscular Volume 95.6 fl (80.0-94.0); Mean Platelet Volume 6.1 fL (7.4-10.4); Platelet Count 180 thou/uL (130-400); Red Blood Cell (RBC) Count 3.71 mill/uL (4.70-6.10); White Blood Cell (WBC) Count 7.1 thou/uL (4.8-10.8)
[2017-11-28 09:12] LABS: ALT (SGPT) 13 U/L (8-55); AST (SGOT) 13 U/L (5-34); Albumin 4.1 g/dL (3.4-4.8); Alkaline Phosphatase 121 U/L (40-150); Anion Gap 15 mmol/L (10-20); BUN (Urea Nitrogen) 42 mg/dL (8.4-25.7); Bilirubin, Total 0.4 mg/dL (0.2-1.2); CK (CPK) 51 U/L (30-200); Calc. Creatinine Clearance 0 mL/min (70-130); Calcium 9.6 mg/dL (7.8-10.44); Carbon Dioxide 25 mmol/L (23-31); Chloride 97 mmol/L (98-107); Estimated GFR-MDRD 49; Globulin 2.1 g/dL (2.4-3.5); Glucose 112 mg/dL (83-110); Potassium 4.5 mmol/L (3.5-5.1); Protein, Total 6.2 g/dL (5.8-8.1); Sodium 132 mmol/L (136-145)
[2017-11-28 09:17] LABS: CKMB 3.5 ng/mL (0-6.6); Troponin I 0.012 ng/mL (< 0.028)
[2017-11-28] MEDS ORDERED: HYDROcodone/Acetaminophen 10/325 mg Tablet ONE (09:17)
== END 2017-11-28 11:15 | disposition home or self-care (01) ==
LOC: ERS 07:21 → CCU 07:48 → UNDOADMIN 07:48 → ERS 11:15
DX: B02.9 Zoster without complications (principal); R07.9 Chest pain, unspecified; J44.9 Chronic obstructive pulmonary disease, unspecified; I48.91 Unspecified atrial fibrillation; I25.10 Atherosclerotic heart disease of native coronary artery without angina pectoris; I50.9 Heart failure, unspecified
CPT/HCPCS: 36415; 71045; 80053; 82553; 83880; 84484; 85025; 93005; 94760

== ENCOUNTER 2018-01-19 10:01 | Outpatient (CLI) | payer MEDICARE, OTHER ==
--- NOTE | 2018-01-19 12:31 | ULT ---
RIGHT UPPER QUADRANT ULTRASOUND: Date: 01-19-18 History: Right upper quadrant abdominal pain and nausea. FINDINGS: Left hepatic lobe is partially obscured due to shadowing from adjacent bowel gas. The remainder of th e liver demonstrates a normal sonographic appearance. There is a small amount of echogenic material within the dependent portion of the gallbladder likely related to a small amount of sludge. No gallbladder calculus is seen. There is no gallbladder wall th ickening. The common duct measures 0.5 cm in diameter. The pancreas is obscured by bowel gas. The visualized portion of the IVC and right kidney demonstrate a normal sonographic appearance. The r ight kidney measures 10.3 cm in length. IMPRESSION: Small amount of sludge within the gallbladder lumen, but no gallbladder calculus is seen. The common duct is normal in caliber. POS: [facility]
== END 2018-01-19 10:02 | disposition home or self-care (01) ==
LOC: SCSULT 10:01
PROVIDERS: ATTEND Internal Medicine Geriatric Medicine
DX: R10.11 Right upper quadrant pain (principal); K82.8 Other specified diseases of gallbladder
CPT/HCPCS: 76705

== ENCOUNTER 2018-03-26 10:09 | Outpatient (CLI) | payer MEDICARE, OTHER ==
[2018-03-26] MEDS ORDERED: ISOVUE-370 76%-LOCM 1 ML ONE (13:28)
== END 2018-03-26 10:10 | disposition home or self-care (01) ==
LOC: BICCT 10:09
PROVIDERS: ATTEND Internal Medicine Medical Oncology
DX: C83.18 Mantle cell lymphoma, lymph nodes of multiple sites (principal); D68.9 Coagulation defect, unspecified; R59.0 Localized enlarged lymph nodes; J90 Pleural effusion, not elsewhere classified
CPT/HCPCS: 71260; 74177

== ENCOUNTER 2018-06-01 13:35 | Outpatient (CLI) | payer MEDICARE, OTHER ==
--- NOTE | 2018-06-01 16:39 | RAD ---
LUMBAR SPINE FOUR VIEWS: 06/01/2018 HISTORY: Back pain. COMPARISON: 08/21/2017 FINDINGS: AP and lateral views with flexion and extension are provided. Again noted is a mild wedge-shaped compression fracture at the L1 vertebral body. The degree of heig ht loss is stable from the study in 2017. No new compression fracture is seen. The lateral view is mildly rotated. There is right convex scoliotic curvature of the thoracolumbar spine. There are ost eophytes seen anteriorly in the lower lumbar spine, in addition to facet degenerative changes. No ab normal translational motion is seen between the flexion and extension views of the lumbar spine. Vas cular calcification is seen in the abdominal aorta and involving the iliac arteries. There is a righ t total hip prosthesis, incompletely evaluated or imaged. IMPRESSION: 1. Stable height loss of a wedge shaped compression fracture of the L1 vertebral body. No additiona l compression fracture is seen, and there is no evidence of a subluxation. 2. Multilevel degenerative changes. 3. Osteopenia. 4. Vascular calcification within the abdominal aorta. 5. Laminectomy defects at the L4-L5 level. POS: [facility]
== END 2018-06-01 13:36 | disposition home or self-care (01) ==
LOC: TBSIIMAG 13:35
PROVIDERS: ATTEND Surgery
DX: M47.26 Other spondylosis with radiculopathy, lumbar region (principal); S32.010D Wedge compression fracture of first lumbar vertebra, subsequent encounter for fracture with routine healing; M85.88 Other specified disorders of bone density and structure, other site; I70.0 Atherosclerosis of aorta; Z98.890 Other specified postprocedural states
CPT/HCPCS: 72110

== ENCOUNTER 2018-06-17 08:22 | Outpatient (CLI) | payer MEDICARE, OTHER ==
--- NOTE | 2018-06-17 10:43 | MRI ---
MRI OF THE LUMBAR SPINE WITH AND WITHOUT CONTRAST: Date: 06-17-18 Comparison: 08-21-17 Technique: Multiplanar, multisequence pre and post contrast enhanced MRI images were obtained of the lumbar spine. History: Lumbar radiculopathy, M54.16. M51.36 intervertebral disc degenerative change. Low back pain, M54.5 FINDINGS: There is an old area of compression fracture in the superior endplate of L1. T12-L1: Unremarkable. L1-2: Mild facet hypertrophy is seen. Central canal and neural foramen are patent. L2-3: Disc desiccation is seen. There is bilateral facet and ligamentum flavum hypertrophy. A small a mount of fluid seen in the L2-3 facet joints. The central canal and neural foramen are patent. L3-4: Disc desiccation is seen. There is a broad based disc protrusion with bilateral severe facet an d ligamentum flavum hypertrophy resulting in moderate to severe L3-4 central and lateral recess steno sis. L4-5: A broad based disc bulge is seen. Bilateral facet and ligamentum flavum hypertrophy is seen. Th e patient has had previous L4 laminectomy changes. No significant degree of central or neural foramin al narrowing is seen. L5-S1: There is a broad based disc bulge with bilateral facet and ligamentum flavum hypertrophy resul ting in a moderate degree of central and lateral recess stenosis. There is mild bilateral neural fora travis narrowing seen. Bilateral facet hypertrophy is seen. Fluid seen in the L5-S1 facet joints. IMPRESSION: 1. Previous L4 laminectomy changes. 2. L3-4 central spinal stenosis with bilateral facet hypertrophy. POS: [facility]
[2018-06-17] MEDS ORDERED: Gadobenate Dimeglumine 529 MG/1 ML (20ML VIAL) ONE (12:54)
== END 2018-06-17 08:23 | disposition home or self-care (01) ==
LOC: BICMRI 08:22
PROVIDERS: ATTEND Surgery
DX: M51.36 Other intervertebral disc degeneration, lumbar region (principal); M54.16 Radiculopathy, lumbar region; M54.5 Low back pain; M48.061 Spinal stenosis, lumbar region without neurogenic claudication; M48.8X6 Other specified spondylopathies, lumbar region; Z98.890 Other specified postprocedural states
CPT/HCPCS: 72158; 82565; A9579

== ENCOUNTER 2018-07-16 07:25 | Outpatient (CLI) | payer MEDICARE, OTHER ==
--- NOTE | 2018-07-16 11:12 | CT ---
CONTRAST ENHANCED CT IMAGES OF THE CHEST AND ABDOMEN AND PELVIS: HISTORY: This 87-year-old presents with a history of lymphoma. Contrast-enhanced CT images of the chest, abdo men, and pelvis are obtained. Comparison is made to previous exam from 03/26/2017. Some minimal mediastinal lymphadenopathy is seen not significantly changed since the previous exam in the right paratracheal region. There is also a small right hilar lymph node unchanged in size since the previous exam. No evidence of axillary lymphadenopathy is seen. Small bilateral pleural effusions are seen. Extensive coronary artery calcifications seen. There is calcification of the aortic valve. The liver and spleen are unremarkable. The gallbladder and pancreas are unremarkable. Adrenal gland s and kidneys unremarkable. No evidence of periaortic lymphadenopathy is seen. Atherosclerotic calcification is seen of the abdominal aorta. No evidence of pelvic lymphadenopathy is seen. The patient has lumbar spine surgical changes. No definite evidence of osseous lesion seen. The patient has had previous right hip arthroplasty with chronic erosive changes of the right acetabu lum, possibly from the unipolar arthroplasty. Orthopedic consultation is recommended. IMPRESSION: 1. Stable mediastinal mildly enlarged lymph nodes not significantly changed since the previous exam. 2. Small bilateral pleural effusions. POS: [facility]
[2018-07-16] MEDS ORDERED: ISOVUE-370 76%-LOCM 1 ML ONE (13:29)
== END 2018-07-16 07:26 | disposition home or self-care (01) ==
LOC: BICCT 07:25
PROVIDERS: ATTEND Internal Medicine Medical Oncology
DX: C85.90 Non-Hodgkin lymphoma, unspecified, unspecified site (principal); J90 Pleural effusion, not elsewhere classified; R59.0 Localized enlarged lymph nodes
CPT/HCPCS: 71260; 74177

== ENCOUNTER 2018-09-01 08:46 | Day surgery (SDC) | payer MEDICARE, OTHER ==
[2018-09-01] MEDS ORDERED: Sodium Chloride 0.9% 0 ML ONE (09:58)
[2018-09-01] MEDS ORDERED: Thrombin 5000 UNITS/5 ML VIAL ONE (09:58)
[2018-09-01] MEDS ORDERED: Sodium Chloride 0.9% 10 ML ONE (09:59)
[2018-09-01 10:21] LABS: INR-International Normal Ratio 1.3; Prothrombin Time 15.8 SEC (12.0-14.7)
[2018-09-01 10:22] LABS: PTT 35.4 SEC (22.9-36.1)
[2018-09-01 10:26] LABS: #Eosinphils 0.1 thou/uL (0.0-0.7); #Lymphocytes 0.6 thou/uL (1.20-3.40); #Monocytes 0.9 thou/uL (0.11-0.59); #Neutrophils 8.4 thou/uL (1.40-6.50); %Basophils 0.5 % (0.0-1.0); %Eosinophils 0.9 % (0.0-10.0); %Lymphocytes 6.4 % (21.0-51.0); %Monocytes 8.4 % (0.0-10.0); %Neutrophils 83.8 % (42.0-75.0); Hemoglobin 9.1 g/dL (14.0-18.0); Mean Corpuscular HGB CONC 33.7 g/dL (32.0-36.0); Mean Corpuscular Hemoglobin 30.1 pg (27.0-31.0); Mean Corpuscular Volume 89.3 fL (78.0-98.0); Mean Platelet Volume 5.4 fL (7.4-10.4); Platelet Count 367 thou/uL (130-400); Red Blood Cell (RBC) Count 3.03 mill/uL (4.70-6.10); White Blood Cell (WBC) Count 10.1 thou/uL (4.8-10.8)
[2018-09-01 10:39] LABS: Anion Gap 15 mmol/L (10-20); BUN (Urea Nitrogen) 19 mg/dL (8.4-25.7); Calc. Creatinine Clearance 51 mL/min (70-130); Carbon Dioxide 27 mmol/L (23-31); Chloride 97 mmol/L (98-107); Estimated GFR-MDRD 54; Glucose 107 mg/dL (83-110); Potassium 3.7 mmol/L (3.5-5.1); Sodium 135 mmol/L (136-145)
[2018-09-01] MEDS ORDERED: Famotidine/PF 20 mg/2ml Vial ONE (11:52)
[2018-09-01] MEDS ORDERED: Fentanyl 100 MCG/2 ML VIAL ONE ×3 (11:52→14:50)
[2018-09-01] MEDS ORDERED: Ondansetron HCl/PF 4 MG/2 ML Vial IVP PRN (13:47)
[2018-09-01] MEDS ORDERED: Bacitracin Zinc Ointment 30 gm TUBE ONE (13:47)
[2018-09-01] MEDS ORDERED: SUGAMMADEX SODIUM 200 MG/2 ML VIAL ONE (14:05)
[2018-09-01] MEDS ORDERED: traMADol HCl 50 MG TAB PO PRN (14:45)
[2018-09-01] MEDS ORDERED: Promethazine HCl 25 MG/ML VIAL IM PRN (14:45)
[2018-09-01] MEDS ORDERED: Mag-Al 1200 mg/1200 mg/30 ML UDCUP PO PRN (14:45)
[2018-09-01] MEDS ORDERED: Milk Of Magnesia 30 ML UDCUP PO PRN (14:45)
[2018-09-01] MEDS ORDERED: Acetaminophen 325 MG TAB PO PRN (14:45)
[2018-09-01] MEDS ORDERED: Bisacodyl 10 MG SUPP PR PRN (14:45)
[2018-09-01] MEDS ORDERED: Sodium Chloride 0.9% 1,000 ML IV SCH (14:45)
[2018-09-01] MEDS ORDERED: Acetaminophen/Codeine 30-300mg Tablet PO PRN (14:45)
[2018-09-01] MEDS ORDERED: tiZANidine HCl 4 MG TAB PO PRN (14:45)
[2018-09-01] MEDS ORDERED: Fleet Enema 133 ML BOT PR PRN (14:45)
[2018-09-01] MEDS ORDERED: HYDROcodone/Acetaminophen 7.5/325 mg Tablet PO PRN (14:45)
[2018-09-01] MEDS ORDERED: Meperidine HCl/PF 25 MG/ML VIAL SLOW IVP PRN (14:45)
[2018-09-01] MEDS ORDERED: Albuterol Sulfate 2.5 mg/3 ml Neb NEB PRN (16:25)
[2018-09-01 16:30] VITALS: BMI 26.3
[2018-09-01] MEDS ORDERED: COMBIVENT INH SCH (17:00)
--- NOTE | 2018-09-01 17:12 | PRG ---
DATE OF SERVICE: 09/01/2018 SUBJECTIVE: Mr. Goddard was seen postoperatively. He was doing well. He was very happy that he was able to lift his legs without pain. He says his breathing is okay. PHYSICAL EXAMINATION: VITAL SIGNS: His O2 sats 99%, pulse 85, and respirations 18. HEENT: Unremarkable. NECK: No JVD. CHEST: Clear. CARDIAC: S1 and S2, regular. ABDOMEN: Soft. EXTREMITIES: No edema. LABORATORY DATA: White blood cell count 10, hematocrit 27, platelet count 367. Sodium 135, potassium 3.7, chloride 97, CO2 of 27, BUN 19, creatinine 1.3, glucose 107. ASSESSMENT: 1. History of left hemothorax after Eliquis use. 2. Reactive airway disease. 3. . 4. History of diastolic cardiac dysfunction. PLAN: 1. Albuterol nebs as needed. 2. Low-flow supplemental oxygen as needed. 3. Hopefully, home soon. Job ID: [id number]
[2018-09-01] MEDS: HYDROcodone/Acetaminophen 7.5/325 mg Tablet PO PRN (18:27)
[2018-09-01] MEDS: Pramipexole Di-HCl 0.25 MG TAB PO SCH (20:59)
[2018-09-01] MEDS ORDERED: Non-Formulary Item 1 EACH (Symbicort 2 PUFF) INH SCH (21:00)
[2018-09-01] MEDS ORDERED: Tamsulosin HCl 0.4 MG CAP PO SCH (21:00)
[2018-09-01] MEDS ORDERED: Gabapentin 300 MG CAP PO SCH (21:00)
[2018-09-01] MEDS ORDERED: PROPOFOL 200 MG/20 ML VIAL ONE (21:32)
[2018-09-01] MEDS ORDERED: Glycopyrrolate 0.2 MG/ML 5 ML SYRINGE ONE (21:32)
[2018-09-01] MEDS ORDERED: PHENYLEPHRINE-NS 100 MCG/ML 10 ML SYRINGE ONE (21:32)
[2018-09-01] MEDS ORDERED: Lidocaine 1% PF 5 ML VIAL ONE (21:32)
[2018-09-01] MEDS ORDERED: Ondansetron PF 4 MG/2 ML Vial ONE (21:32)
[2018-09-01] MEDS ORDERED: Ketorolac Tromethamine 30 MG/ML VIAL ONE (21:32)
[2018-09-01] MEDS ORDERED: ePHEDrine/0.9% NaCl/PF SYRINGE 50 mg/10 ml ONE (21:32)
[2018-09-01] MEDS ORDERED: Dexamethasone 20 MG/5 ML VIAL ONE (21:32)
[2018-09-02] MEDS: HYDROcodone/Acetaminophen 7.5/325 mg Tablet PO PRN (06:18)
[2018-09-02] MEDS ORDERED: Mometasone/Formoterol 120 PUFF INHALER INH SCH (06:30)
[2018-09-02] MEDS ORDERED: Vancomycin HCl 1 GM in Premix Bag 1 BAG IVPB SCH (07:00)
--- NOTE | 2018-09-02 08:30 | OP ---
DATE OF PROCEDURE: 09/01/2018 OPERATING ROOM: 11. WOUND CLASSIFICATION: Type 1 wound. HORSE FARM MANAGER: Jose Davila PA-C. PREPROCEDURE DIAGNOSIS: Right L4 and right L5 radiculopathy with prior L4 to S1 surgery in the past with right L4-L5 stenosis. POSTPROCEDURE DIAGNOSIS: Right L4 and right L5 radiculopathy with prior L4 to S1 surgery in the past with right L4-L5 stenosis. PROCEDURES PERFORMED: 1. Right L3-L4 hemilaminotomy, foraminotomy, and decompression of the right L4 nerve root. 2. Revision right L4-L5 hemilaminotomy, foraminotomy, and diskectomy. 3. Use of operating microscope for microdissection. DESCRIPTION OF PROCEDURE: After informed consent was obtained from the patient, the patient was brought to OR 11. Proper patient pause and identification were carried out. He was placed under excellent general endotracheal anesthesia and positioned prone on the OR table. All appropriate points were padded. We identified the L3, L4, and L5 segments. A linear tammy was made over this region. Portions of the prior wound were incorporated. This area was sterilely cleansed prepared and draped. Proper patient pause and identification were carried out. The wound was then opened with a combination of sharp, monopolar, and blunt dissection and the L3, L4, and L5 segments were exposed. There was significant scar tissue as expected in the right L4-L5 region, not unusual given the patient's prior surgery. We then with localization, identified our landmarks and performed a right L3-L4 hemilaminotomy and foraminotomy. We had excellent decompression of right L4 nerve root and removed osteophytic overgrowth of the right L3-L4 joint that was compressing on the traversing right L4 nerve root. The microscope was used for microdissection. We then turned our attention to the right L4-L5 segment, where revision of right L4-L5 hemilaminotomy, foraminotomy, and diskectomy was performed. Disk material removed there. We then had excellent decompression of the right L3, right L4, and right L5 nerve roots. Copious irrigation occurred throughout. We then maximized hemostasis and the wound was then closed in anatomic layers following sprinkling of vancomycin powder. The patient then emerged from anesthesia. Job ID: [id number]
[2018-09-02] MEDS: Pramipexole Di-HCl 0.25 MG TAB PO SCH (08:37)
--- NOTE | 2018-09-02 09:46 | PRG ---
DATE OF SERVICE: 09/02/2018 Mr. Goddard is postoperative day 1 from right-sided L3-L4 decompression and revision right L4-L5 decompression. He states he has had resolution in his leg pain. He is moving bilateral lower extremities well without deficit and very pleased with how he is doing. We will plan to transition him to dismissal today, and we have gone over interim postoperative issues. Job ID: [id number]
--- NOTE | 2018-09-02 10:05 | PRG ---
DATE OF SERVICE: 09/02/2018 SUBJECTIVE: He is doing reasonably well, has no complaints. OBJECTIVE: VITAL SIGNS: His temperature is 97.4, pulse 55, respirations 18, O2 sat 95% on 2 L, and blood pressure 115/63. HEENT: Unremarkable. NECK: No JVD. CHEST: Clear. CARDIAC: S1 and S2, regular. ABDOMEN: Soft. EXTREMITIES: No edema. ASSESSMENT: Stable pulmonary status. PLAN: He is okay to go home from my standpoint. Job ID: [id number]
[2018-09-02 11:48] VITALS: BP 111/67; TEMP 97.4
== END 2018-09-02 12:51 | disposition home or self-care (01) ==
LOC: SDC 08:46 → SURG B 15:28 → SDC 09-02 12:51
PROVIDERS: ATTEND Surgery
PROC: 0SB20ZZ Excision of Lumbar Vertebral Disc, Open Approach (ICD-10-PCS; principal; 2018-09-01)
PROC: 01NB0ZZ Release Lumbar Nerve, Open Approach (ICD-10-PCS; 2018-09-01)
DX: M48.061 Spinal stenosis, lumbar region without neurogenic claudication (principal); M54.16 Radiculopathy, lumbar region; I25.10 Atherosclerotic heart disease of native coronary artery without angina pectoris; I48.2 Chronic atrial fibrillation; I10 Essential (primary) hypertension; G40.909 Epilepsy, unspecified, not intractable, without status epilepticus; Z88.1 Allergy status to other antibiotic agents; Z88.0 Allergy status to penicillin; Z87.891 Personal history of nicotine dependence; Z79.82 Long term (current) use of aspirin; Z79.899 Other long term (current) drug therapy; Z88.5 Allergy status to narcotic agent
CPT/HCPCS: 76001; 80048; 85025; 85610; 85730; 86850; 86900; 86901; 94640; 96374; J0131; J1100; J1885; J2001; J2405; J2704; J3010; J3370; J3490; J7620; S0028

== ENCOUNTER → 2018-10-01 | Day surgery (SDC) | payer MEDICARE, OTHER ==
--- NOTE | 2018-10-01 12:17 | RAD ---
JOINT ASPIRATION: HISTORY: Bulk in internal joint prosthesis. Joint aspiration. RADIATION DOSIMETRY: 1.7 minutes of fluoroscopy and AK of 374 mcg. TECHNIQUE: Informed consent was obtained from the patient. The right hip was prepped and draped in the usual st erile manner. A 1% Lidocaine solution was used to anesthetize the overlying soft tissues. The right hip arthroplasty was located using fluoroscopic guidance. The femoral head component was visualized . A 22-gauge spinal needle was placed using CT guidance adjacent to the right hip arthroplasty both medially and laterally. Multiple times the needle was passed into the space between the arthroplasty and the soft tissues. Each time, no fluid could be aspirated. IMPRESSION: No evidence of fluid aspirated during multiple hip joint aspirations. POS: [facility]
== END ==
LOC: RAD 08:43
PROVIDERS: ATTEND Orthopaedic Surgery
PROC: 0S993ZZ Drainage of Right Hip Joint, Percutaneous Approach (ICD-10-PCS; principal; 2018-10-01)
DX: T84.010A Broken internal right hip prosthesis, initial encounter (principal); Z79.82 Long term (current) use of aspirin; Z79.899 Other long term (current) drug therapy; Z88.0 Allergy status to penicillin; Z88.1 Allergy status to other antibiotic agents; Z88.5 Allergy status to narcotic agent
CPT/HCPCS: 20610; 77002

== ENCOUNTER 2018-10-12 07:23 | Outpatient (CLI) | payer MEDICARE, OTHER ==
[2018-10-12 15:34] LABS: #Basophils 0.1 thou/uL (0.0-0.2); #Eosinphils 0.1 thou/uL (0.0-0.7); #Lymphocytes 1.6 thou/uL (1.20-3.40); #Monocytes 1.1 thou/uL (0.11-0.59); #Neutrophils 8.4 thou/uL (1.40-6.50); %Basophils 0.5 % (0.0-1.0); %Eosinophils 1.1 % (0.0-10.0); %Lymphocytes 14.3 % (21.0-51.0); %Monocytes 9.6 % (0.0-10.0); %Neutrophils 74.6 % (42.0-75.0); Hemoglobin 12.4 g/dL (14.0-18.0); Mean Corpuscular HGB CONC 31.9 g/dL (32.0-36.0); Mean Corpuscular Hemoglobin 28.5 pg (27.0-31.0); Mean Corpuscular Volume 89.3 fL (78.0-98.0); Mean Platelet Volume 5.7 fL (7.4-10.4); Platelet Count 336 thou/uL (130-400); RBC Distribution Width 15.1 % (11.5-14.5); Red Blood Cell (RBC) Count 4.35 mill/uL (4.70-6.10); White Blood Cell (WBC) Count 11.2 thou/uL (4.8-10.8)
[2018-10-12 15:39] LABS: INR-International Normal Ratio 1.2; Prothrombin Time 15.2 SEC (12.0-14.7)
[2018-10-12 16:08] LABS: Anion Gap 16 mmol/L (10-20); BUN (Urea Nitrogen) 32 mg/dL (8.4-25.7); Calc. Creatinine Clearance 0 mL/min (70-130); Calcium 10.3 mg/dL (7.8-10.44); Carbon Dioxide 24 mmol/L (23-31); Chloride 100 mmol/L (98-107); Estimated GFR-MDRD 42; Glucose 110 mg/dL (83-110); Potassium 4.8 mmol/L (3.5-5.1); Sodium 135 mmol/L (136-145)
--- NOTE | 2018-10-12 20:24 | EKG ---
Test Reason : Blood Pressure : / mmHG Vent. Rate : 093 BPM Atrial Rate : 111 BPM P-R Int : 000 ms QRS Dur : 082 ms QT Int : 348 ms P-R-T Axes : 000 069 029 degrees QTc Int : 432 ms Atrial fibrillation Possible Anterior infarct , age undetermined Abnormal ECG Confirmed by FELICITA RAZA, DR. Ruiz ([id number]) on 10/12/2018 8:24:11 PM Referred By: LIBBY Confirmed By:DR. Joseph MIMS MD
== END 2018-10-12 07:24 | disposition home or self-care (01) ==
LOC: LABBT 07:23
PROVIDERS: ATTEND Orthopaedic Surgery
DX: Z01.818 Encounter for other preprocedural examination (principal); T84.59XA Infection and inflammatory reaction due to other internal joint prosthesis, initial encounter
CPT/HCPCS: 80048; 85025; 85610; 87081; 93005; 93010

== ENCOUNTER 2018-10-12 13:30 | Inpatient (IN) | payer MEDICARE, OTHER ==
[2018-10-16] MEDS ORDERED: Tobramycin Sulfate 1.2 GM VIAL ONE (06:50)
[2018-10-16] MEDS ORDERED: Acetaminophen 325 MG TAB PO PRN (06:56)
[2018-10-16] MEDS ORDERED: Zolpidem Tartrate 5 MG TAB PO PRN (06:56)
[2018-10-16] MEDS ORDERED: Ondansetron PF 4 MG/2 ML Vial IVP PRN (06:56)
[2018-10-16] MEDS ORDERED: diphenhydrAMINE 25 MG CAP PO PRN (06:56)
[2018-10-16] MEDS ORDERED: traMADol HCl 50 MG TAB PO PRN (06:56)
[2018-10-16] MEDS ORDERED: Promethazine HCl 25 MG/ML VIAL IM PRN ×2 (06:56→09:42)
[2018-10-16] MEDS ORDERED: HYDROcodone/Acetaminophen 10/325 mg Tablet PO PRN (06:59)
[2018-10-16] MEDS ORDERED: Metoprolol Tartrate 25 MG TAB PO PRN (06:59)
[2018-10-16] MEDS ORDERED: Sodium Chloride 0.9% 1,000 ML IV SCH (07:00)
[2018-10-16] MEDS ORDERED: Midazolam HCl 2 mg/2 ml Vial ONE (07:04)
[2018-10-16] MEDS ORDERED: KETAMINE 100 MG/ML (5ML VIAL) ONE (07:13)
[2018-10-16] MEDS ORDERED: Albuterol Sulfate HFA (OR ONLY) ONE (07:14)
[2018-10-16] MEDS ORDERED: Furosemide 20 MG TAB PO SCH (09:00)
[2018-10-16] MEDS ORDERED: Multivitamin W/ Minerals 1 TAB PO SCH (09:00)
[2018-10-16] MEDS ORDERED: Aspirin 81 mg Enteric Coated Tablet PO SCH (09:00)
[2018-10-16] MEDS ORDERED: Promethazine HCl 25 MG/ML VIAL SLOW IVP PRN (09:42)
[2018-10-16] MEDS ORDERED: Ondansetron HCl/PF 4 MG/2 ML Vial IVP PRN (09:42)
[2018-10-16] MEDS ORDERED: Levofloxacin 500 mg/D5W 100 ml Premix Bag ONE (09:42)
[2018-10-16] MEDS ORDERED: Metoprolol Tartrate 5 MG/5 ML VIAL ONE (10:31)
[2018-10-16] MEDS ORDERED: PROPOFOL 20 ML ONE (11:08)
[2018-10-16 11:09] LABS: Actual Bicarbonate (HCO3a) 31.8 mEq/L (22-28); Analyzer IN Cardio OR; Base Excess (BEa) -2.2 mEq/L (-2.0 to +3.0); Calcium, Ionized 1.26 mmol/L (1.12-1.30); Carboxyhemoglobin (COHb) 0.9 gm% (0.0-3.0); O2 Tension (PaO2) 201.6 mmHg (> 60.0); pH, Arterial 7.01 (7.35-7.45)
[2018-10-16 11:10] LABS: Puncture Site ALINE
[2018-10-16] MEDS ORDERED: PHENYLEPHRINE-NS 100 MCG/ML 10 ML SYRINGE ONE ×2 (11:16→14:36)
[2018-10-16] MEDS ORDERED: Rocuronium Bromide 50 MG/5 ML VIAL ONE (11:18)
[2018-10-16] MEDS ORDERED: Propofol BOLUS 1,000 MG/100 ML VIAL IV PRN (11:41)
[2018-10-16] MEDS ORDERED: Lorazepam 2 MG/ML VIAL SLOW IVP PRN (11:41)
[2018-10-16] MEDS ORDERED: DISCONTINUE PREVIOUS NARCOTIC PAIN MEDICATIONS AND BENZODIAZEPINES FS SCH (11:41)
[2018-10-16] MEDS ORDERED: Propofol 1,000 MG/100 ML VIAL IV PRN (11:41)
[2018-10-16] MEDS ORDERED: Fentanyl BOLUS 250 ML IVPB PRN (11:41)
[2018-10-16 11:42] LABS: Actual Bicarbonate (HCO3a) 23.9 mEq/L (22-28); Analyzer IN Cardio OR; Base Excess (BEa) -1.5 mEq/L (-2.0 to +3.0); CO2 Tension 42.5 mmHg (35.0-45.0); Calcium, Ionized 1.17 mmol/L (1.12-1.30); Carboxyhemoglobin (COHb) 0.7 gm% (0.0-3.0); Hemoglobin (Hb) 11.1 g/dL (14.0-18.0); O2 Tension (PaO2) 181.7 mmHg (> 60.0); Potassium - ABG Lab 4.24 mmol/L (3.70-5.30); pH, Arterial 7.37 (7.35-7.45)
[2018-10-16 11:45] LABS: ALV-art Gradient 50.375 (0-20); Puncture Site ALINE
--- NOTE | 2018-10-16 11:59 | OP ---
DATE OF PROCEDURE: 10/16/2018 PREOPERATIVE DIAGNOSIS: Previously infected failed hip replacement. PROCEDURE PERFORMED: Revision total hip arthroplasty of the right hip using a [employer] modular 17 mm stem with a 19 mm body, +10 on the neck length of the body, -4 head, and a 62 mm cup with an MDM liner. ELECTRO WINNING OPERATOR: Angelo Trevizo PA-C BLOOD LOSS: About 400. SPECIMENS: I did send cultures and I sent synovial tissue for white blood cells per high-power field, which was negative for any white blood cells, only some chronic inflammation. DESCRIPTION OF PROCEDURE: The patient was taken to the operating room, where general anesthesia was induced. The patient was placed in left lateral decubitus position. He received no antibiotics prior to the operation. He was on no oral antibiotics either, so that he get good cultures. I made a standard anterolateral approach. I dissected down to the hip, extended with quite a bit of difficulty due to scarring and also the acetabulum completely spun out of place in the femoral head and dug into the bone of the pelvis. I had to dissociate the ball from the stem on the pelvis. I was then able to extract the stem, I used [employer] cement revision removal tools with some great difficulty to get all of the cement from the femur. I then approached the acetabulum and circumferentially exposed the acetabulum. I removed a great deal previous scar tissue. The liner excessively been dislocated inferior to the head. I reamed up to size 60 mm. I impacted a 60 mm cup in an excellent press-fit. With that, I did 2 additional screws just for improved fixation. MDM liner was placed. Returned to the femur, sequentially reamed up to 17 mm x +10 depth. I did +10, so I would like to go back up or down on the trial revision since he was so short preoperatively. I impacted the permanent 17 with excellent vertical stability. Trials were performed and appropriate implants were selected, permanent implants were placed after copious irrigation. Hip was assembled, reduced. Abductor was next repaired with #2 Vicryl and #5 Ethibond. IT band was repaired with #2 Quill. Subcu was closed with 0 Quill, skin was closed with 2-0 Monocryl and skin glue was applied. There were no complications. Job ID: [id number]
[2018-10-16] MEDS ORDERED: Propofol 500 MG/50 ML VIAL ONE (12:03)
[2018-10-16] MEDS ORDERED: fentaNYL Citrate/PF 2,000 MCG in Sodium Chloride 0.9% 60 ML IV SCH (12:11)
[2018-10-16] MEDS ORDERED: Fentanyl 100 MCG/2 ML VIAL ONE (12:41)
[2018-10-16] MEDS ORDERED: PROVENTIL INHALER 6.7 G (200 INHALATIONS) INH SCH (13:00)
--- NOTE | 2018-10-16 13:40 | RAD ---
RIGHT HIP TWO TO THREE VIEW SERIES: INDICATIONS: Postop right total hip. FINDINGS: There has been interval placement of a right hip prosthesis. There is no acute hardware complication . Post procedural soft tissue air is seen about the right hip. IMPRESSION: Postoperative right hip without acute hardware complication. POS: [facility]
--- NOTE | 2018-10-16 13:44 | RAD ---
FRONTAL VIEW CHEST: INDICATION: Status post intubation. COMPARISON: Reference is made to 08/17/2018 chest radiograph. FINDINGS: Interval placement of endotracheal tube with tip at the level of the thoracic inlet. There is bibasi lar pleural-based density indicative of pleural fluid. Bilateral alveolar and interstitial opacities are present predominantly in a perihilar distribution. There is suture material overlying the later al right mid lung. Prior sternotomy noted. IMPRESSION: 1. Endotracheal tube placement with tip at the level of the thoracic inlet. 2. Bilateral pleural fluid, left greater than right, with parenchymal opacities bilaterally that may reflect edema. Recommend followup to resolution. POS: [facility]
[2018-10-16] MEDS: Ferrous Gluconate 324 MG TAB PO SCH ×2 (13:51→21:06)
[2018-10-16] MEDS: Aspirin 81 mg Enteric Coated Tablet PO SCH ×2 (13:51→21:06)
[2018-10-16] MEDS: Saccharomyces boulardii 250 MG CAP PO SCH (13:52)
[2018-10-16] MEDS: Polyethylene Glycol 3350 17 GM Packet PO SCH (13:52)
[2018-10-16] MEDS ORDERED: Glycopyrrolate 0.2 MG/ML 5 ML SYRINGE ONE (14:36)
[2018-10-16] MEDS ORDERED: Rocuronium Bromide 10 MG/ML (10ML VIAL) ONE (14:36)
[2018-10-16] MEDS ORDERED: PROVENTIL INHALER 6.7 G (200 INHALATIONS) ONE (14:36)
[2018-10-16] MEDS ORDERED: Ondansetron PF 4 MG/2 ML Vial ONE (14:36)
--- NOTE | 2018-10-16 14:51 | CON ---
DATE OF CONSULTATION: 10/16/2018 SERVICE: Pulmonary Medicine. REASON FOR CONSULTATION: Respiratory failure. HISTORY OF PRESENT ILLNESS: The patient is an 87-year-old white male with past medical history significant for severe COPD and a history of left lower lobectomy. He was actually in his usual state of health when he started having problems with his right hip. He has had multiple surgical procedures, which has been previously complicated by infection. On this presentation, he was having some hardware placed. Postop course was unremarkable. That being said, in the postanesthesia care unit, the patient had increasing altered sensorium. An ABG demonstrated acute hypercapnic respiratory failure, and he was subsequently re-intubated and tucked into the ICU. Prior to presentation, there is no mention of fevers, chills, cough, nausea, vomiting, or diarrhea. He was in his usual state of health, which includes some dysfunction in lungs. PAST MEDICAL HISTORY: 1. Dyslipidemia. 2. Hypertension. 3. Atrial fibrillation. 4. Seizure disorder. 5. Essential tremor. 6. Coronary artery disease. 7. Chronic obstructive pulmonary disease. 8. Chronic hypoxic respiratory failure. PAST SURGICAL HISTORY: 1. Tonsillectomy. 2. Coronary artery bypass graft surgery. 3. Knee surgery. 4. Hand surgery. 5. Herniorrhaphy. 6. Left lower lobectomy. 7. Right hip surgery, multiple. FAMILY HISTORY: Noncontributory. SOCIAL HISTORY: Unknown at this time. There is no current use of alcohol, tobacco, or illicit drug use indicated in the review of medical record. ALLERGIES: CLINDAMYCIN AND PENICILLIN. MEDICATIONS: List of the patient's medications reviewed. Outpatient medications include; 1. Digoxin 125 mcg p.o. daily. 2. Aspirin 325 mg p.o. daily. 3. Colace 100 mg p.o. daily. 4. Protonix 40 mg p.o. daily. 5. Florastor 250 mg p.o. b.i.d. 6. Lasix 20 mg p.o. daily. 7. Albuterol or DuoNeb q.4 to q.6 hours as needed. 8. Flomax 0.4 mg p.o. daily. 9. Multivitamin one tablet p.o. daily. 10. Metoprolol 25 mg p.o. daily. REVIEW OF SYSTEMS: Cannot be obtained as the patient is currently intubated and requiring some sedation. PHYSICAL EXAMINATION: VITAL SIGNS: Afebrile. Pulse 75, respirations 14, saturation 98% on 37% FiO2 and PEEP of 5. GENERAL: The patient is intubated and sedated. HEENT: Normocephalic and atraumatic. Sclerae white. Conjunctivae pink. Oral mucosa is moist without lesions. LUNGS: Actually pretty decent air entry. I heard some small rhonchi. There is no crackles in the dependent regions. There is a prolonged expiratory phase, but I do not hear any excessive wheezing. HEART: Normal rate. Regular. ABDOMEN: Soft, nontender, and nondistended. Bowel sounds are positive. MUSCULOSKELETAL: No cyanosis or clubbing. There is no pitting in the bilateral lower extremities. NEUROLOGIC: Grossly nonfocal. LABORATORY DATA: These are currently pending. DIAGNOSTIC DATA: Chest x-ray demonstrates good placement of the endotracheal tube. I do not appreciate any acute cardiopulmonary abnormality. ASSESSMENT: 1. Acute on chronic hypoxic and hypercapnic respiratory failure. 2. Chronic obstructive pulmonary disease with mild acute exacerbation. 3. Metabolic encephalopathy, improving. 4. Hip surgery, postop day 0. DISCUSSION AND PLAN: I have made multiple adjustments to mechanical ventilation in order to provide more comfort for the patient. We will minimize sedation through time. My plan is to try to wake him up once anesthesia is fully out of his system, and extubate him fully when awake in the morning, if he can tolerate this. We will continue his digoxin, aspirin (tomorrow morning), Colace, Protonix, Florastor, DuoNeb, Flomax, and metoprolol. I will hold his Lasix and give him a very low trickle of water to prevent the significant dehydration. We will watch for any signs of sepsis. At this point, he has already cleared his respiratory issue, and my suspicion is that we are dealing with him having a problem with chronic respiratory failure and being extubated perhaps a touch before the influence of anesthesia was completely out of his system. Time will tell however. Critical care time: 30 minutes. Job ID: [id number] [id number]
[2018-10-16] MEDS: Sodium Chloride 0.9% 1,000 ML IV SCH (16:25)
[2018-10-16] MEDS ORDERED: Vancomycin HCl 1.5 GM in Sodium Chloride 0.9% 250 ML 300 ML IVPB SCH (19:00)
[2018-10-16] MEDS ORDERED: Vancomycin HCl 1 GM in Premix Bag 1 BAG IVPB SCH (21:00)
[2018-10-16] MEDS ORDERED: Prevnar 13-Val Conj/PF 0.5 ML SYRINGE IM ONE (21:00)
[2018-10-16] MEDS: Tamsulosin HCl 0.4 MG CAP PO SCH (21:07)
[2018-10-17] MEDS ORDERED: Amiodarone 150 MG, Admixture Fee 1 EACH in Dextrose 5% in Water 100 ML IVPB SCH (01:30)
[2018-10-17] MEDS ORDERED: Amiodarone 450 MG, Admixture Fee 1 EACH in Dextrose 5% in Water 250 ML IVPB SCH (01:30)
[2018-10-17] MEDS ORDERED: Digoxin 0.5 MG/2 ML AMP SLOW IVP SCH ×2 (01:30→09:00)
[2018-10-17 04:29] LABS: Hemoglobin 9.3 g/dL (14.0-18.0); Mean Corpuscular HGB CONC 32.3 g/dL (32.0-36.0); Mean Corpuscular Hemoglobin 28.2 pg (27.0-31.0); Mean Corpuscular Volume 87.2 fL (78.0-98.0); Platelet Count 251 thou/uL (130-400); RBC Distribution Width 14.7 % (11.5-14.5); Red Blood Cell (RBC) Count 3.31 mill/uL (4.70-6.10); White Blood Cell (WBC) Count 12.1 thou/uL (4.8-10.8)
[2018-10-17 04:48] LABS: Anion Gap 12 mmol/L (10-20); BUN (Urea Nitrogen) 23 mg/dL (8.4-25.7); Calc. Creatinine Clearance 0 mL/min (70-130); Calcium 8.9 mg/dL (7.8-10.44); Carbon Dioxide 23 mmol/L (23-31); Chloride 103 mmol/L (98-107); Estimated GFR-MDRD 59; Glucose 95 mg/dL (83-110); Potassium 4.2 mmol/L (3.5-5.1); Sodium 134 mmol/L (136-145)
[2018-10-17] MEDS: Sodium Chloride 0.9% 1,000 ML IV SCH ×2 (07:15→22:42)
[2018-10-17] MEDS ORDERED: Multivitamin W/ Minerals 1 TAB PO SCH (09:00)
[2018-10-17] MEDS: Aspirin 81 mg Enteric Coated Tablet PO SCH ×2 (09:11→21:43)
[2018-10-17] MEDS: Saccharomyces boulardii 250 MG CAP PO SCH (09:11)
[2018-10-17] MEDS: Ferrous Gluconate 324 MG TAB PO SCH ×2 (09:12→21:45)
[2018-10-17] MEDS: Senokot S 8.6-50 MG TAB PO SCH ×2 (09:12→21:45)
[2018-10-17] MEDS: Polyethylene Glycol 3350 17 GM Packet PO SCH (09:13)
[2018-10-17] MEDS: Vancomycin HCl 1.25 GM in Sodium Chloride 0.9% 250 ML 250 ML IVPB SCH (09:30)
--- NOTE | 2018-10-17 11:11 | PRG ---
DATE OF SERVICE: 10/17/2018 INTERVAL HISTORY: The patient had uneventful night. Denies any current chest pain, fevers, or chills. He is breathing comfortably. He is having a small amount of very thick yellow sputum, come out of his endotracheal tube. Otherwise, there has been no interval change to his condition. PHYSICAL EXAMINATION: VITAL SIGNS: Currently with a T-max of 100.8, pulse is 109, blood pressure 115/ 67, respirations 16, and saturation 100% on room air. GENERAL: The patient is awake and alert, in no apparent distress. LUNGS: Decent air entry. There is a prolonged expiratory phase. Rhonchi are present. No crackles or wheezing appreciated. HEART: Normal rate and regular. ABDOMEN: Soft, nontender, and nondistended. Bowel sounds are positive. MUSCULOSKELETAL: No cyanosis or clubbing. No pitting in the bilateral lower extremities. NEUROLOGIC: Grossly nonfocal. LABORATORY DATA: WBC 12.1, hemoglobin 9.3, and platelets 251,000. PH 7.37, pCO2 42, PO2 181. Basic metabolic profile is essentially unremarkable with a creatinine of 1.17, which is dramatically improved. ASSESSMENT: 1. Acute on chronic hypoxic and hypercapnic respiratory failure. 2. Chronic obstructive pulmonary disease with mild exacerbation. 3. Metabolic encephalopathy, resolved. 4. Hip surgery, postop day 1. DISCUSSION AND PLAN: We will put the patient on a spontaneous breathing trial. If he meets criteria after 30 minutes, extubation will be considered. We will continue his antibiotics and nebulized medications, and low doses of steroid. If he tolerates extubation, we will start on mobilization efforts, remove Pham catheter, and get him into a chair. Cleared for physical therapy by Surgery. Critical care time: 30 minutes. Job ID: [id number] MTDD
[2018-10-17] MEDS ORDERED: Metoprolol Tartrate 25 MG TAB PO SCH (12:45)
[2018-10-17] MEDS: HYDROcodone/Acetaminophen 10/325 mg Tablet PO PRN ×3 (14:01→21:44)
--- NOTE | 2018-10-17 20:45 | PDOC.PN ---
- Subjective Encounter Start Date: 10/17/18 Encounter Start Time: 10:30 -: non-verbal Patient seen and examined for med mngt. Awake. On Vent. No overnight events - Objective MAR Reviewed: Yes Vital Signs & Weight: Vital Signs (12 hours) Temp Pulse Resp BP BP Pulse Ox 10/17/18 20:42 97.8 F 102 H 18 101/61 93 L 10/17/18 19:10 96 18 94 L 10/17/18 16:47 98.1 F 98 20 111/64 95 10/17/18 14:37 92 18 10/17/18 11:08 120 H 122/80 10/17/18 10:00 16 Weight Weight 2.868 oz Most Recent Monitor Data Heart Rate from ECG 95 NIBP 95/51 NIBP BP-Mean 65 Respiration from ECG 24 SpO2 95 I&O: 10/16/18 10/17/18 10/18/18 06:59 06:59 06:59 Intake Total 1212.7 215.4 Output Total 965 550 Balance 247.7 -334.6 Result Diagrams: 10/18/18 06:54 10/17/18 04:20 EKG Reviewed by me: Yes (Afib) Phys Exam - Physical Examination Constitutional: NAD on Vent Respiratory: no wheezing, no rhonchi Cardiovascular: no rub, irregular Gastrointestinal: soft, non-tender, positive bowel sounds Musculoskeletal: no edema Neurological: moves all 4 limbs Dx/Plan (1) CAD (coronary artery disease) Code(s): I25.10 - ATHSCL HEART DISEASE OF [place] CORONARY ARTERY W/O ANG PCTRS Status: Chronic Comment: s/p CABG (2) Chronic a-fib Code(s): I48.2 - CHRONIC ATRIAL FIBRILLATION Status: Chronic Comment: on ASA. Not on anticoag due to recurrent hemothorax per Cardiology notes (3) Acute respiratory failure with hypoxia Code(s): J96.01 - ACUTE RESPIRATORY FAILURE WITH HYPOXIA Status: Acute Comment: post operative (4) HTN (hypertension) Code(s): I10 - ESSENTIAL (PRIMARY) HYPERTENSION Status: Chronic Qualifiers: Hypertension type: essential hypertension Qualified Code(s): I10 - Essential (primary) hypertension (5) CKD (chronic kidney disease) stage 3, GFR 30-59 ml/min Code(s): N18.3 - CHRONIC KIDNEY DISEASE, STAGE 3 (MODERATE) Status: Chronic (6) Essential tremor Code(s): G25.0 - ESSENTIAL TREMOR Status: Chronic - Plan cont current plan of care, gomez catheter, PT/OT, DVT proph w/SCDs Cont supportive care -: Probably will get extubated today -: Cont current meds as below -: Full code. 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" Penicillins Allergy Intermediate Swollen Verified 08/31/18 10:56 Lips meropenem Allergy Rash Verified 08/31/18 10:56 morphine Allergy Swollen Verified 09/01/18 16:59 Lips Medications: Current Medications Acetaminophen (Tylenol) 650 mg PO Q4H PRN PRN Reason: Headache/Fever or Pain Hydrocodone Bitart/Acetaminophen ([place] 10/325) 1 tab PO Q4H PRN PRN Reason: Moderate Pain (4-6) Last Admin: 10/17/18 18:43 Dose: 1 tab Albuterol/Ipratropium (Duoneb) 3 ml NEB [id number] [facility] Last Admin: 10/17/18 19:10 Dose: 3 ml Aspirin (Ecotrin) 81 mg PO BID [facility] Last Admin: 10/17/18 09:11 Dose: 81 mg Digoxin (Lanoxin) 0.125 mg SLOW IVP DAILY [facility] Diphenhydramine HCl (Benadryl) 25 mg PO Q6H PRN PRN Reason: Itching Ferrous Gluconate (Fergon) 324 mg PO BID [facility] Last Admin: 10/17/18 09:12 Dose: 324 mg Vancomycin HCl 1.25 gm/ Sodium (Chloride) 250 mls @ 166.667 mls/hr IVPB 0800 [facility] Last Admin: 10/17/18 09:30 Dose: 250 mls Sodium Chloride (Normal Saline 0.9%) 1,000 mls @ 60 mls/hr IV .[id number] [facility] Last Admin: 10/17/18 07:15 Dose: 1,000 mls Amiodarone HCl 150 mg/Miscellaneous Medication 1 each/ Dextrose/Water 103 mls @ 618 mls/hr IVPB ONE [facility]; Protocol Stop: 10/18/18 01:31 Amiodarone HCl 450 mg/Miscellaneous Medication 1 each/ Dextrose/Water 259 mls @ 0 mls/hr IVPB INF [facility]; Protocol Metoprolol Tartrate (Lopressor) 25 mg PO DAILY [facility] Discontinue Previous Narcotic Pain Medications And Benzodiazepines 1 each FS .ONE [facility] Stop: 11/15/18 11:41 Ondansetron HCl (Zofran) 4 mg IVP Q6H PRN PRN Reason: Nausea/Vomiting Pantoprazole Sodium (Protonix) 40 mg PO QAM [facility] Last Admin: 10/17/18 09:13 Dose: 40 mg Polyethylene Glycol (Miralax) 17 gm PO DAILY [facility] Last Admin: 10/17/18 09:13 Dose: 17 gm Prednisone (Prednisone) 40 mg PO QAM-WM [facility] Stop: 10/20/18 08:01 Promethazine HCl (Phenergan) 12.5 mg IM Q4H PRN PRN Reason: Nausea/Vomiting Saccharomyces Boulardii (Florastor) 250 mg PO DAILY [facility] Last Admin: 10/17/18 09:11 Dose: 250 mg Senna/Docusate Sodium (Senokot S) 2 tab PO BID [facility] Last Admin: 10/17/18 09:12 Dose: 2 tab Sodium Chloride (Flush - Normal Saline) 10 ml IVF PRN PRN PRN Reason: Saline Flush Tamsulosin HCl (Flomax) 0.4 mg PO QPM [facility] Last Admin: 10/16/18 21:07 Dose: Not Given Tramadol HCl (Ultram) 100 mg PO Q6H PRN PRN Reason: Moderate Pain (4-6) Zolpidem Tartrate (Ambien) 5 mg PO HSPRN PRN PRN Reason: Insomnia
[2018-10-17] MEDS: Tamsulosin HCl 0.4 MG CAP PO SCH (21:45)
[2018-10-18 07:18] LABS: Hemoglobin 8.7 g/dL (14.0-18.0); Mean Corpuscular HGB CONC 31.5 g/dL (32.0-36.0); Mean Corpuscular Hemoglobin 28.3 pg (27.0-31.0); Mean Corpuscular Volume 89.8 fL (78.0-98.0); Mean Platelet Volume 6.4 fL (7.4-10.4); Platelet Count 191 thou/uL (130-400); RBC Distribution Width 14.5 % (11.5-14.5); Red Blood Cell (RBC) Count 3.06 mill/uL (4.70-6.10); White Blood Cell (WBC) Count 9.8 thou/uL (4.8-10.8)
[2018-10-18 07:41] LABS: Vancomycin, Trough 12.1 ug/mL
[2018-10-18] MEDS: predniSONE 20 MG TAB PO SCH (08:31)
[2018-10-18] MEDS: Senokot S 8.6-50 MG TAB PO SCH ×2 (08:31→20:34)
[2018-10-18] MEDS: Ferrous Gluconate 324 MG TAB PO SCH ×2 (08:31→20:34)
[2018-10-18] MEDS: Saccharomyces boulardii 250 MG CAP PO SCH (08:32)
[2018-10-18] MEDS: Polyethylene Glycol 3350 17 GM Packet PO SCH (08:32)
[2018-10-18] MEDS: Aspirin 81 mg Enteric Coated Tablet PO SCH ×2 (08:32→21:23)
[2018-10-18] MEDS: Digoxin 0.5 MG/2 ML AMP SLOW IVP SCH (08:35)
[2018-10-18] MEDS: Vancomycin HCl 1.25 GM in Sodium Chloride 0.9% 250 ML 250 ML IVPB SCH (08:59)
[2018-10-18] MEDS ORDERED: Metoprolol Tartrate 25 MG TAB PO SCH ×2 (09:00→21:00)
[2018-10-18] MEDS ORDERED: Furosemide 40 MG/4 ML VIAL SLOW IVP SCH (14:15)
[2018-10-18] MEDS ORDERED: Enoxaparin Sodium 40 MG/0.4 ML SYRINGE SC SCH (14:30)
--- NOTE | 2018-10-18 14:30 | PRG ---
DATE OF SERVICE: 10/18/2018 SERVICE: Pulmonary Medicine. INTERVAL HISTORY: The patient is doing fine from respiratory standpoint. Breathing comfortably. Denies any current chest pain, fevers, chills, nausea, or vomiting. His breathing is a little bit labored. He gets a little bit more short-winded whenever he gets up on his new hip. PHYSICAL EXAMINATION: VITAL SIGNS: Afebrile, pulse 89, blood pressure 102/65, respirations 18, and saturation 95% on room air. GENERAL: The patient is awake and alert, in no apparent distress. LUNGS: Decent air entry. There are bibasilar crackles present. No prolonged expiratory phase or wheezing is appreciated. HEART: Normal rate, regular. ABDOMEN: Soft, nontender, and nondistended. Bowel sounds are positive. MUSCULOSKELETAL: No cyanosis or clubbing. There is trace 1+ pitting in the bilateral lower extremities. NEUROLOGIC: Grossly nonfocal. LABORATORY DATA: WBC 9.8, hemoglobin 8.7, platelets 191,000. Creatinine 1.17 previously. ASSESSMENT: 1. Acute hypoxic and hypercapnic respiratory failure. 2. Chronic obstructive pulmonary disease with mild exacerbation. 3. Metabolic encephalopathy secondary to lingering effect of anesthesia. 4. Hip surgery, secondary to infected joint, postop day #2. DISCUSSION AND PLAN: The patient is doing really well from respiratory standpoint. I will stop his IV fluids and give him a single dose of Lasix. We will continue nebulized medications, antibiotics and steroids. Mobilization efforts to be continued. Pulmonary Critical Care will continue to follow very closely. Dr. Rodriguez will assume care in the morning. Job ID: [id number]
--- NOTE | 2018-10-18 20:12 | PDOC.PN ---
- Subjective Encounter Start Date: 10/18/18 Encounter Start Time: 08:30 Patient seen and examined for med mngt. No CP/SOB. No new complaints. No overnight events - Objective MAR Reviewed: Yes Vital Signs & Weight: Vital Signs (12 hours) Temp Pulse Pulse Pulse Resp BP BP 10/18/18 18:03 86 20 10/18/18 15:47 97.9 F 90 22 H 10/18/18 11:30 97.7 F 89 18 10/18/18 09:42 94 100 110/61 99/56 L 10/18/18 08:40 81 20 10/18/18 08:35 86 BP BP Pulse Ox Pulse Ox Pulse Ox 10/18/18 18:03 98 10/18/18 15:47 109/66 94 L 10/18/18 11:30 102/65 95 10/18/18 09:42 115/66 93 L 94 L 10/18/18 08:40 96 10/18/18 08:35 Weight Weight 2.868 oz Most Recent Monitor Data Heart Rate from ECG 95 NIBP 95/51 NIBP BP-Mean 65 Respiration from ECG 24 SpO2 95 I&O: 10/17/18 10/18/18 10/19/18 06:59 06:59 06:59 Intake Total 1212.7 1015.4 Output Total 965 1075 1999 Balance 247.7 -59.6 -1999 Result Diagrams: 10/18/18 06:54 10/17/18 04:20 Phys Exam - Physical Examination Constitutional: NAD Respiratory: no wheezing, no rhonchi Cardiovascular: no rub, irregular Gastrointestinal: soft, non-tender, positive bowel sounds Musculoskeletal: no edema Neurological: moves all 4 limbs Dx/Plan (1) CAD (coronary artery disease) Code(s): I25.10 - ATHSCL HEART DISEASE OF [place] CORONARY ARTERY W/O ANG PCTRS Status: Chronic Comment: s/p CABG (2) Chronic a-fib Code(s): I48.2 - CHRONIC ATRIAL FIBRILLATION Status: Chronic Comment: on ASA. Not on anticoag due to recurrent hemothorax per Cardiology notes (3) Acute respiratory failure with hypoxia Code(s): J96.01 - ACUTE RESPIRATORY FAILURE WITH HYPOXIA Status: Acute Comment: post operative, Extubated 2/2 (4) HTN (hypertension) Code(s): I10 - ESSENTIAL (PRIMARY) HYPERTENSION Status: Chronic Qualifiers: Hypertension type: essential hypertension Qualified Code(s): I10 - Essential (primary) hypertension (5) CKD (chronic kidney disease) stage 3, GFR 30-59 ml/min Code(s): N18.3 - CHRONIC KIDNEY DISEASE, STAGE 3 (MODERATE) Status: Chronic (6) Essential tremor Code(s): G25.0 - ESSENTIAL TREMOR Status: Chronic - Plan cont current plan of care, PT/OT, DVT proph w/SCDs Change Metoprolol to 12.5 mg BID -: Cont Flomax -: Cont other home meds as below Review of Systems - Review of Systems Respiratory: negative: Cough, Dry, Shortness of Breath, Hemoptysis, SOB with Excertion, Pleuritic Pain, Sputum, Wheezing Cardiovascular: negative: chest pain, palpitations, orthopnea, paroxysmal nocturnal dyspnea, edema, light headedness, other - Medications/Allergies Allergies/Adverse Reactions: Allergies Allergy/AdvReac Type Severity Reaction Status Date / Time clindamycin Allergy Severe "blood Verified 08/31/18 10:56 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, 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" Penicillins Allergy Intermediate Swollen Verified 08/31/18 10:56 Lips meropenem Allergy Rash Verified 08/31/18 10:56 morphine Allergy Swollen Verified 09/01/18 16:59 Lips Medications: Current Medications Acetaminophen (Tylenol) 650 mg PO Q4H PRN PRN Reason: Headache/Fever or Pain Hydrocodone Bitart/Acetaminophen ([place] 10/325) 1 tab PO Q4H PRN PRN Reason: Moderate Pain (4-6) Last Admin: 10/17/18 21:44 Dose: 1 tab Albuterol/Ipratropium (Duoneb) 3 ml NEB [id number] [facility] Last Admin: 10/18/18 18:03 Dose: 3 ml Aspirin (Ecotrin) 81 mg PO BID [facility] Last Admin: 10/18/18 08:32 Dose: Not Given Digoxin (Lanoxin) 0.125 mg SLOW IVP DAILY [facility] Last Admin: 10/18/18 08:35 Dose: Not Given Diphenhydramine HCl (Benadryl) 25 mg PO Q6H PRN PRN Reason: Itching Enoxaparin Sodium (Lovenox) 40 mg SC 0900 [facility] Ferrous Gluconate (Fergon) 324 mg PO BID [facility] Last Admin: 10/18/18 08:31 Dose: 324 mg Vancomycin HCl 1.25 gm/ Sodium (Chloride) 250 mls @ 166.667 mls/hr IVPB 0800 [facility] Last Admin: 10/18/18 08:59 Dose: 250 mls Amiodarone HCl 450 mg/Miscellaneous Medication 1 each/ Dextrose/Water 259 mls @ 0 mls/hr IVPB INF [facility]; Protocol Metoprolol Tartrate (Lopressor) 12.5 mg PO BID [facility] Discontinue Previous Narcotic Pain Medications And Benzodiazepines 1 each FS .ONE [facility] Stop: 11/15/18 11:41 Ondansetron HCl (Zofran) 4 mg IVP Q6H PRN PRN Reason: Nausea/Vomiting Pantoprazole [facility] ([facility]) [facility] Last Admin: 10/18/18 08:32 Dose: 40 mg Polyethylene Glycol (Miralax) 17 gm PO DAILY [facility] Last Admin: 10/18/18 08:32 Dose: 17 gm Prednisone (Prednisone) 40 mg PO QA[facility] Stop: 10/20/18 08:01 Last Admin: 10/18/18 08:31 Dose: 40 mg Promethazine HCl (Phenergan) 12.5 mg IM Q4H PRN PRN Reason: Nausea/Vomiting Saccharomyces Boulardii (Florastor) 250 mg PO DAILY [facility] Last Admin: 10/18/18 08:32 Dose: 250 mg Senna/Docusate Sodium (Senokot S) 2 tab PO BID [facility] Last Admin: 10/18/18 08:31 Dose: 2 tab Sodium Chloride (Flush - Normal Saline) 10 ml IVF PRN PRN PRN Reason: Saline Flush Tamsulosin HCl (Flomax) 0.4 mg PO QPM [facility] Last Admin: 10/17/18 21:45 Dose: 0.4 mg Tramadol HCl (Ultram) 100 mg PO Q6H PRN PRN Reason: Moderate Pain (4-6) Last Admin: 10/18/18 10:12 Dose: 100 mg Zolpidem Tartrate (Ambien) 5 mg PO HSPRN PRN PRN Reason: Insomnia
[2018-10-18] MEDS: Tamsulosin HCl 0.4 MG CAP PO SCH (20:34)
[2018-10-18] MEDS: Metoprolol Tartrate 25 MG TAB PO SCH (21:24)
[2018-10-19 06:49] LABS: Hemoglobin 8.8 g/dL (14.0-18.0); Mean Corpuscular HGB CONC 31.5 g/dL (32.0-36.0); Mean Corpuscular Hemoglobin 28.3 pg (27.0-31.0); Mean Corpuscular Volume 89.6 fL (78.0-98.0); Mean Platelet Volume 6.8 fL (7.4-10.4); Platelet Count 215 thou/uL (130-400); RBC Distribution Width 14.3 % (11.5-14.5); Red Blood Cell (RBC) Count 3.13 mill/uL (4.70-6.10); White Blood Cell (WBC) Count 10.9 thou/uL (4.8-10.8)
[2018-10-19 07:08] LABS: Anion Gap 16 mmol/L (10-20); BUN (Urea Nitrogen) 41 mg/dL (8.4-25.7); Calc. Creatinine Clearance 0 mL/min (70-130); Calcium 9.3 mg/dL (7.8-10.44); Carbon Dioxide 23 mmol/L (23-31); Chloride 105 mmol/L (98-107); Estimated GFR-MDRD 64; Glucose 128 mg/dL (83-110); Magnesium 1.9 mg/dL (1.6-2.6); Sodium 140 mmol/L (136-145)
[2018-10-19] MEDS: Polyethylene Glycol 3350 17 GM Packet PO SCH (08:05)
[2018-10-19] MEDS: Enoxaparin Sodium 40 MG/0.4 ML SYRINGE SC SCH (08:05)
[2018-10-19] MEDS: Senokot S 8.6-50 MG TAB PO SCH ×2 (08:05→20:58)
[2018-10-19] MEDS: Ferrous Gluconate 324 MG TAB PO SCH ×2 (08:05→20:52)
[2018-10-19] MEDS: Saccharomyces boulardii 250 MG CAP PO SCH (08:05)
[2018-10-19] MEDS: Aspirin 81 mg Enteric Coated Tablet PO SCH ×2 (08:05→11:08)
[2018-10-19] MEDS: Metoprolol Tartrate 25 MG TAB PO SCH ×2 (08:06→20:52)
[2018-10-19] MEDS: predniSONE 20 MG TAB PO SCH (08:06)
[2018-10-19] MEDS: Digoxin 0.5 MG/2 ML AMP SLOW IVP SCH (08:06)
[2018-10-19] MEDS: Vancomycin HCl 1.25 GM in Sodium Chloride 0.9% 250 ML 250 ML IVPB SCH (08:07)
--- NOTE | 2018-10-19 08:43 | PRG ---
DATE OF SERVICE: 10/19/2018 SUBJECTIVE: He is feeling better, had no acute complaints today. OBJECTIVE: VITAL SIGNS: Temperature 97.9, pulse 94, respirations 12, O2 sat 97%, and blood pressure 137/74. HEENT: Unremarkable. NECK: No JVD. CHEST: Clear air entry. CARDIAC: S1 and S2, regular. ABDOMEN: Soft. EXTREMITIES: No edema. ASSESSMENT: 1. Stable severe asthma/chronic obstructive pulmonary disease. 2. Status post hip replacement. PLAN: He is probably suitable for transfer to rehab. He will finish up his prednisone over the next couple of days. He continues his breathing treatments. Job ID: [id number]
[2018-10-19 13:29] VITALS: BMI 25.1
[2018-10-19] MEDS: tiZANidine HCl 4 MG TAB PO PRN ×2 (14:27→21:34)
[2018-10-19] MEDS: Tamsulosin HCl 0.4 MG CAP PO SCH (20:53)
--- NOTE | 2018-10-19 21:24 | PDOC.PN ---
- Subjective Encounter Start Date: 10/19/18 Encounter Start Time: 08:30 Patient seen and examined for med mngt. No CP/SOB. No new complaints. No overnight events - Objective MAR Reviewed: Yes Vital Signs & Weight: Vital Signs (12 hours) Temp Pulse Pulse Resp BP BP BP 10/19/18 20:00 98 F 98 16 133/78 10/19/18 19:26 98 16 10/19/18 15:29 98.3 F 98 20 127/46 L 10/19/18 12:20 90 16 10/19/18 11:49 98.1 F 88 14 137/79 10/19/18 10:34 94 134/71 154/81 H Pulse Ox 10/19/18 20:00 96 10/19/18 19:26 95 10/19/18 15:29 95 10/19/18 12:20 94 L 10/19/18 11:49 95 10/19/18 10:34 Weight Weight 180 lb Most Recent Monitor Data Heart Rate from ECG 95 NIBP 95/51 NIBP BP-Mean 65 Respiration from ECG 24 SpO2 95 I&O: 10/18/18 10/19/18 10/20/18 06:59 06:59 06:59 Intake Total 1015.4 500 1000 Output Total 1075 2925 800 Balance -59.6 -2425 200 Result Diagrams: 10/19/18 06:14 10/19/18 06:14 Phys Exam - Physical Examination Constitutional: NAD Respiratory: no wheezing, no rhonchi Cardiovascular: no rub, irregular Gastrointestinal: soft, positive bowel sounds Musculoskeletal: no edema Neurological: moves all 4 limbs Dx/Plan (1) CAD (coronary artery disease) Code(s): I25.10 - ATHSCL HEART DISEASE OF [place] CORONARY ARTERY W/O ANG PCTRS Status: Chronic Comment: s/p CABG (2) Chronic a-fib Code(s): I48.2 - CHRONIC ATRIAL FIBRILLATION Status: Chronic Comment: on ASA. Not on anticoag due to recurrent hemothorax per Cardiology notes (3) Acute respiratory failure with hypoxia Code(s): J96.01 - ACUTE RESPIRATORY FAILURE WITH HYPOXIA Status: Acute Comment: post operative, Extubated 2/2 (4) HTN (hypertension) Code(s): I10 - ESSENTIAL (PRIMARY) HYPERTENSION Status: Chronic Qualifiers: Hypertension type: essential hypertension Qualified Code(s): I10 - Essential (primary) hypertension (5) CKD (chronic kidney disease) stage 3, GFR 30-59 ml/min Code(s): N18.3 - CHRONIC KIDNEY DISEASE, STAGE 3 (MODERATE) Status: Chronic (6) Essential tremor Code(s): G25.0 - ESSENTIAL TREMOR Status: Chronic - Plan cont current plan of care, respiratory therapy, DVT proph w/SCDs Cont Prednisone -: Cont low dose Metoprolol -: Change Digoxin to PO -: Cont other meds as below Review of Systems - Review of Systems Respiratory: negative: Cough, Dry, Shortness of Breath, Hemoptysis, SOB with Excertion, Pleuritic Pain, Sputum, Wheezing Cardiovascular: negative: chest pain, palpitations, orthopnea, paroxysmal nocturnal dyspnea, edema, light headedness, other - Medications/Allergies Allergies/Adverse Reactions: Allergies Allergy/AdvReac Type Severity Reaction Status Date / Time clindamycin Allergy Severe "blood Verified 08/31/18 10:56 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, 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" Penicillins Allergy Intermediate Swollen Verified 08/31/18 10:56 Lips meropenem Allergy Rash Verified 08/31/18 10:56 morphine Allergy Swollen Verified 09/01/18 16:59 Lips Medications: Current Medications Acetaminophen (Tylenol) 650 mg PO Q4H PRN PRN Reason: Headache/Fever or Pain Hydrocodone Bitart/Acetaminophen ([place] 10/325) 1 tab PO Q4H PRN PRN Reason: Moderate Pain (4-6) Last Admin: 10/17/18 21:44 Dose: 1 tab Albuterol/Ipratropium (Duoneb) 3 ml NEB [id number] [facility] Last Admin: 10/19/18 19:26 Dose: 3 ml Digoxin (Lanoxin) 0.125 mg PO DAILY [facility] Diphenhydramine HCl (Benadryl) 25 mg PO Q6H PRN PRN Reason: Itching Enoxaparin Sodium (Lovenox) 40 mg SC 0900 [facility] Last Admin: 10/19/18 08:05 Dose: 40 mg Ferrous Gluconate (Fergon) 324 mg PO BID [facility] Last Admin: 10/19/18 20:52 Dose: 324 mg Vancomycin HCl 1.25 gm/ Sodium (Chloride) 250 mls @ 166.667 mls/hr IVPB 0800 [facility] Last Admin: 10/19/18 08:07 Dose: 250 mls Metoprolol Tartrate (Lopressor) 12.5 mg PO BID [facility] Last Admin: 10/19/18 20:52 Dose: 12.5 mg Miscellaneous Medication (Pharmacy To Dose) 0 each IVPB PRN PRN PRN Reason: VANCOMYCIN Discontinue Previous Narcotic Pain Medications And Benzodiazepines 1 each FS .ONE [facility] Stop: 11/15/18 11:41 Ondansetron HCl (Zofran) 4 mg IVP Q6H PRN PRN Reason: Nausea/Vomiting Pantoprazole Sodium (Protonix) 40 mg PO QAM [facility] Last Admin: 10/19/18 08:05 Dose: 40 mg Polyethylene Glycol (Miralax) 17 gm PO DAILY [facility] Last Admin: 10/19/18 08:05 Dose: 17 gm Prednisone (Prednisone) 40 mg PO QAM[facility] Stop: 10/20/18 08:01 Last Admin: 10/19/18 08:06 Dose: 40 mg Promethazine HCl (Phenergan) 12.5 mg IM Q4H PRN PRN Reason: Nausea/Vomiting Saccharomyces Boulardii (Florastor) 250 mg PO DAILY [facility] Last Admin: 10/19/18 08:05 Dose: 250 mg Senna/Docusate Sodium (Senokot S) 2 tab PO BID [facility] Last Admin: 10/19/18 20:58 Dose: Not Given Sodium Chloride (Flush - Normal Saline) 10 ml IVF PRN PRN PRN Reason: Saline Flush Last Admin: 10/18/18 20:34 Dose: 10 ml Tamsulosin HCl (Flomax) 0.4 mg PO QPM [facility] Last Admin: 10/19/18 20:53 Dose: 0.4 mg Tizanidine HCl (Zanaflex) 4 mg PO Q8H PRN PRN Reason: Muscle Spasm Last Admin: 10/19/18 14:27 Dose: 4 mg Tramadol HCl (Ultram) 100 mg PO Q6H PRN PRN Reason: Moderate Pain (4-6) Last Admin: 10/18/18 10:12 Dose: 100 mg Zolpidem Tartrate (Ambien) 5 mg PO HSPRN PRN PRN Reason: Insomnia
[2018-10-20] MEDS: HYDROcodone/Acetaminophen 10/325 mg Tablet PO PRN ×2 (01:10→14:19)
[2018-10-20 07:04] LABS: Hemoglobin 8.7 g/dL (14.0-18.0); Mean Corpuscular HGB CONC 31.5 g/dL (32.0-36.0); Mean Corpuscular Hemoglobin 28.1 pg (27.0-31.0); Mean Corpuscular Volume 89.3 fL (78.0-98.0); Mean Platelet Volume 6.6 fL (7.4-10.4); Platelet Count 215 thou/uL (130-400); RBC Distribution Width 14.3 % (11.5-14.5); Red Blood Cell (RBC) Count 3.09 mill/uL (4.70-6.10); White Blood Cell (WBC) Count 8.7 thou/uL (4.8-10.8)
[2018-10-20 07:20] LABS: Vancomycin, Trough 15.5 ug/mL
[2018-10-20] MEDS ORDERED: Digoxin 0.125 MG TAB PO SCH (09:00)
[2018-10-20] MEDS: predniSONE 20 MG TAB PO SCH (09:05)
--- NOTE | 2018-10-20 09:31 | PRG ---
DATE OF SERVICE: 10/20/2018 SUBJECTIVE: He is doing well except for dry cough. OBJECTIVE: VITAL SIGNS: Temperature is 98.2, pulse 97, respirations 18, O2 saturation 96% on room air, and blood pressure 124/74. HEENT: Unremarkable. NECK: No JVD. CHEST: Clear. CARDIAC: S1 and S2. Regular. ABDOMEN: Soft. EXTREMITIES: No edema. LABORATORY DATA: Hematocrit is 27.6 and platelet count 215. ASSESSMENT AND PLAN: 1. The patient is doing well from a Pulmonary standpoint. In terms of his respiratory status, plan to start incentive spirometry. 2. Continue enoxaparin for deep venous thrombosis prophylaxis and might consider low-dose Eliquis or Xarelto at the time of discharge for prolonged prophylaxis. Job ID: [id number]
[2018-10-20] MEDS: Senokot S 8.6-50 MG TAB PO SCH (10:26)
[2018-10-20] MEDS: Saccharomyces boulardii 250 MG CAP PO SCH (10:27)
[2018-10-20] MEDS: Metoprolol Tartrate 25 MG TAB PO SCH (10:27)
[2018-10-20] MEDS: Ferrous Gluconate 324 MG TAB PO SCH (10:28)
[2018-10-20] MEDS: Enoxaparin Sodium 40 MG/0.4 ML SYRINGE SC SCH (10:28)
[2018-10-20] MEDS: Polyethylene Glycol 3350 17 GM Packet PO SCH (10:28)
[2018-10-20] MEDS: Vancomycin HCl 1.25 GM in Sodium Chloride 0.9% 250 ML 250 ML IVPB SCH (10:28)
[2018-10-20] MEDS: tiZANidine HCl 4 MG TAB PO PRN (12:29)
[2018-10-20 16:27] LABS: Actual Bicarbonate (HCO3a) 23.4 mEq/L (22-28); Analyzer IN Cardio OR; Base Excess (BEa) -0.5 mEq/L (-2.0 to +3.0); CO2 Tension 35.7 mmHg (35.0-45.0); Calcium, Ionized 1.13 mmol/L (1.12-1.30); Carboxyhemoglobin (COHb) 0.8 gm% (0.0-3.0); Hemoglobin (Hb) 10.6 g/dL (14.0-18.0); O2 Tension (PaO2) 359.6 mmHg (> 60.0); Potassium - ABG Lab 3.71 mmol/L (3.70-5.30); pH, Arterial 7.43 (7.35-7.45)
[2018-10-20 16:30] VITALS: BP 135/79; TEMP 98.6
[2018-10-20 16:35] LABS: Puncture Site ALINE
--- NOTE | 2018-10-20 16:43 | PDOC.PN ---
- Subjective Encounter Start Date: 10/20/18 Encounter Start Time: 09:30 Patient seen and examined for med mngt. No new complaints. No overnight events - Objective MAR Reviewed: Yes Vital Signs & Weight: Vital Signs (12 hours) Temp Pulse Resp BP BP Pulse Ox 10/20/18 15:42 98.6 F 107 H 20 135/79 94 L 10/20/18 11:45 100 15 94 L 10/20/18 11:00 97.5 F L 105 H 22 H 125/74 92 L 10/20/18 10:29 96 10/20/18 07:40 96 10/20/18 07:24 98.2 F 97 18 124/73 96 10/20/18 06:31 86 16 96 Weight Weight 180 lb Most Recent Monitor Data Heart Rate from ECG 95 NIBP 95/51 NIBP BP-Mean 65 Respiration from ECG 24 SpO2 95 I&O: 10/19/18 10/20/18 10/21/18 06:59 06:59 06:59 Intake Total 500 1720 546 Output Total 2925 1150 Balance -2425 570 546 Result Diagrams: 10/20/18 06:30 10/19/18 06:14 Phys Exam - Physical Examination Constitutional: NAD Respiratory: no wheezing, no rhonchi Cardiovascular: RRR, no rub Gastrointestinal: soft, non-tender, positive bowel sounds Musculoskeletal: no edema Neurological: moves all 4 limbs Dx/Plan (1) CAD (coronary artery disease) Code(s): I25.10 - ATHSCL HEART DISEASE OF [place] CORONARY ARTERY W/O ANG PCTRS Status: Chronic Comment: s/p CABG (2) Chronic a-fib Code(s): I48.2 - CHRONIC ATRIAL FIBRILLATION Status: Chronic Comment: on ASA. Not on anticoag due to recurrent hemothorax per Cardiology notes (3) Acute respiratory failure with hypoxia Code(s): J96.01 - ACUTE RESPIRATORY FAILURE WITH HYPOXIA Status: Acute Comment: post operative, Extubated 2/2 (4) HTN (hypertension) Code(s): I10 - ESSENTIAL (PRIMARY) HYPERTENSION Status: Chronic Qualifiers: Hypertension type: essential hypertension Qualified Code(s): I10 - Essential (primary) hypertension (5) CKD (chronic kidney disease) stage 3, GFR 30-59 ml/min Code(s): N18.3 - CHRONIC KIDNEY DISEASE, STAGE 3 (MODERATE) Status: Chronic (6) Essential tremor Code(s): G25.0 - ESSENTIAL TREMOR Status: Chronic - Plan cont current plan of care, respiratory therapy, DVT proph w/SCDs Cont Metoprolol with Digoxin at current dose -: Cont other meds as below -: Digoxin level after 2 weeks Review of Systems - Review of Systems Cardiovascular: negative: chest pain, palpitations, orthopnea, paroxysmal nocturnal dyspnea, edema, light headedness, other Gastrointestinal: negative: Nausea, Vomiting, Abdominal Pain, Diarrhea, Constipation, Melena, Hematochezia, Other - Medications/Allergies Allergies/Adverse Reactions: Allergies Allergy/AdvReac Type Severity Reaction Status Date / Time clindamycin Allergy Severe "blood Verified 08/31/18 10:56 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, 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" Penicillins Allergy Intermediate Swollen Verified 08/31/18 10:56 Lips meropenem Allergy Rash Verified 08/31/18 10:56 morphine Allergy Swollen Verified 09/01/18 16:59 Lips Medications: Current Medications Acetaminophen (Tylenol) 650 mg PO Q4H PRN PRN Reason: Headache/Fever or Pain (1-3) Hydrocodone Bitart/Acetaminophen ([place] 10/325) 1 tab PO Q4H PRN PRN Reason: Severe Pain (7-10) Last Admin: 10/20/18 14:19 Dose: 1 tab Albuterol/Ipratropium (Duoneb) 3 ml NEB [id number] [facility] [place] Last Admin: 10/20/18 11:45 Dose: 3 ml Digoxin (Lanoxin) 0.125 mg PO DAILY [facility] [place] Last Admin: 10/20/18 10:29 Dose: 0.125 mg Diphenhydramine HCl (Benadryl) 25 mg PO Q6H PRN PRN Reason: Itching Enoxaparin Sodium (Lovenox) 40 mg SC 0900 [facility] [place] Last Admin: 10/20/18 10:28 Dose: 40 mg Ferrous Gluconate (Fergon) 324 mg PO BID [facility] [place] Last Admin: 10/20/18 10:28 Dose: 324 mg Vancomycin HCl 1.25 gm/ Sodium (Chloride) 250 mls @ 166.667 mls/hr IVPB 0800 [facility] [place] Last Admin: 10/20/18 10:28 Dose: 250 mls Metoprolol Tartrate (Lopressor) 12.5 mg PO BID [facility] [place] Last Admin: 02/05/19 10:27 Dose: 12.5 mg Miscellaneous Medication (Pharmacy To Dose) 0 each IVPB PRN PRN PRN Reason: VANCOMYCIN Discontinue Previous Narcotic Pain Medications And Benzodiazepines 1 each FS .ONE [facility] [place] Stop: 11/15/18 11:41 Ondansetron HCl (Zofran) 4 mg IVP Q6H PRN PRN Reason: Nausea/Vomiting Pantoprazole Sodium (Protonix) 40 mg PO QAM [facility] [place] Last Admin: 10/20/18 10:27 Dose: 40 mg Polyethylene Glycol (Miralax) 17 gm PO DAILY [facility] [place] Last Admin: 10/20/18 10:28 Dose: 17 gm Promethazine HCl (Phenergan) 12.5 mg IM Q4H PRN PRN Reason: Nausea/Vomiting Saccharomyces Boulardii (Florastor) 250 mg PO DAILY [facility] [place] Last Admin: 10/20/18 10:27 Dose: 250 mg Senna/Docusate Sodium (Senokot S) 2 tab PO BID [facility] [place] Last Admin: 10/20/18 10:26 Dose: 2 tab Sodium Chloride (Flush - Normal Saline) 10 ml IVF PRN PRN PRN Reason: Saline Flush Last Admin: 10/18/18 20:34 Dose: 10 ml Tamsulosin HCl (Flomax) 0.4 mg PO QPM [facility] [place] Last Admin: 10/19/18 20:53 Dose: 0.4 mg Tizanidine HCl (Zanaflex) 4 mg PO Q8H PRN PRN Reason: Muscle Spasm Last Admin: 10/20/18 12:29 Dose: 4 mg Tramadol HCl (Ultram) 100 mg PO Q6H PRN PRN Reason: Moderate Pain (4-6) Last Admin: 10/18/18 10:12 Dose: 100 mg Zolpidem Tartrate (Ambien) 5 mg PO HSPRN PRN PRN Reason: Insomnia
--- NOTE | 2018-10-21 12:43 | DIS ---
DATE OF ADMISSION: 10/16/2018 DATE OF DISCHARGE: 10/20/2018 PREOPERATIVE DIAGNOSIS: Right hip hardware failure. POSTOPERATIVE DIAGNOSIS: Right hip hardware failure. PROCEDURE: The patient underwent a right total hip revision. HOSPITAL STAY: The patient did quite well after a few days. Initially when he came out of surgery, he needed to be on the vent to get his lungs tuned up a little bit for a day. He was extubated on day #2, kept in the ICU by day #3. He was up on the floor and working with Physical Therapy and Occupational Therapy. He was a little slow on the get-go because of the hip pain, but he tried diligently and did quite well. Each day, he progressed more and more. He had no other hospital complications after extubation. DISCHARGE CONDITION: Good/stable. DISPOSITION: To inpatient rehab. FOLLOWUP: Follow up would be in 2 to 4 weeks, sooner if there are problems or any concerns. DISCHARGE MEDICATIONS: Given with usage instructions. Job ID: [id number]
== END 2018-10-20 16:30 | DRG 466 ==
LOC: SURG A 10-16 06:15 → CCU 10-16 12:52 → SURG A 10-17 16:35
PROVIDERS: ADMIT Orthopaedic Surgery; ATTEND Orthopaedic Surgery
PROC: 0SR90JA Replacement of Right Hip Joint with Synthetic Substitute, Uncemented, Open Approach (ICD-10-PCS; principal; 2018-10-16)
PROC: 0SP90JZ Removal of Synthetic Substitute from Right Hip Joint, Open Approach (ICD-10-PCS; 2018-10-16)
PROC: 5A1935Z Respiratory Ventilation, Less than 24 Consecutive Hours (ICD-10-PCS; 2018-10-16)
DX: T84.51XA Infection and inflammatory reaction due to internal right hip prosthesis, initial encounter (principal); J96.22 Acute and chronic respiratory failure with hypercapnia; J96.21 Acute and chronic respiratory failure with hypoxia; G93.41 Metabolic encephalopathy; J44.1 Chronic obstructive pulmonary disease with (acute) exacerbation; I13.0 Hypertensive heart and chronic kidney disease with heart failure and stage 1 through stage 4 chronic kidney disease, or unspecified chronic kidney disease; I48.2 Chronic atrial fibrillation; J44.9 Chronic obstructive pulmonary disease, unspecified; N18.3 Chronic kidney disease, stage 3 (moderate); I25.10 Atherosclerotic heart disease of native coronary artery without angina pectoris; Z85.72 Personal history of non-Hodgkin lymphomas; I50.9 Heart failure, unspecified; E78.00 Pure hypercholesterolemia, unspecified; M85.80 Other specified disorders of bone density and structure, unspecified site; G40.909 Epilepsy, unspecified, not intractable, without status epilepticus; G25.0 Essential tremor; Z90.2 Acquired absence of lung [part of]; Z88.0 Allergy status to penicillin; Z88.1 Allergy status to other antibiotic agents; Z88.5 Allergy status to narcotic agent; Y83.1 Surgical operation with implant of artificial internal device as the cause of abnormal reaction of the patient, or of later complication, without mention of misadventure at the time of the procedure
CPT/HCPCS: 36415; 36416; 71045; 80048; 80202; 82805; 83735; 85027; 87070; 87205; 88305; 88331; 90471; 90670; 94002; 94003; 94640; 94660; 94799; C1713; C1776; G0009; J1160; J1642; J1650; J1940; J1956; J2250; J2405; J2704; J2920; J3010; J3260; J3370; J7050; J7506; J7620

== ENCOUNTER 2018-11-04 13:06 | Outpatient (CLI) | payer MEDICARE, OTHER ==
--- NOTE | 2018-11-04 15:21 | RAD ---
CHEST FRONTAL AND LATERAL IMAGIN11/04/2018 HISTORY: Shortness of breath. COMPARISON: 01/16/2016 and 10/28/2018 FINDINGS: There is increased linear interstitial density in the bilateral lung bases, left greater than right. There is blunting of the costophrenic angle on the left with lateral pleural thickening involving th e left lung base. These findings are stable when compared to prior imaging. A post surgical suture line overlies the lateral aspect of the mid right lung zone. The thoracic aorta is tortuous. Midlin e sternotomy wires are present. No focal consolidation or alveolar edema. No significant interval c hange. IMPRESSION: Chronic findings, as detailed above, stable when compared to the prior examination. POS: [facility]
== END 2018-11-04 13:07 | disposition home or self-care (01) ==
LOC: RAD 13:06
PROVIDERS: ATTEND Internal Medicine Critical Care Medicine
DX: R06.00 Dyspnea, unspecified (principal); D68.9 Coagulation defect, unspecified; C83.18 Mantle cell lymphoma, lymph nodes of multiple sites; N18.3 Chronic kidney disease, stage 3 (moderate); D63.1 Anemia in chronic kidney disease; J98.4 Other disorders of lung; J92.9 Pleural plaque without asbestos; Q25.46 Tortuous aortic arch; Z98.890 Other specified postprocedural states
CPT/HCPCS: 36415; 71046; 80053; 82248; 83615; 84100; 84550

== ENCOUNTER 2018-12-17 14:07 | Outpatient (CLI) | payer MEDICARE, OTHER ==
--- NOTE | 2018-12-17 14:33 | RAD ---
TWO VIEWS CHEST: Comparison: 11-04-18 History: Dyspnea. FINDINGS: Two views of the chest shows a normal sized cardiomediastinal silhouette. The patient is status post sternotomy. Increased interstitial lung markings are present. Scarring is seen in the left base. Ther e is no evidence of consolidation, mass, pleural effusion. IMPRESSION: No evidence of acute cardiopulmonary disease. POS: [facility]
== END 2018-12-17 14:08 | disposition home or self-care (01) ==
LOC: RAD 14:07
PROVIDERS: ATTEND Internal Medicine Critical Care Medicine
DX: R06.00 Dyspnea, unspecified (principal)
CPT/HCPCS: 71046

== ENCOUNTER 2019-01-20 08:38 | Day surgery (SDC) | payer MEDICARE, OTHER ==
[2019-01-19 15:03] VITALS: BMI 23.0
[2019-01-20 10:21] LABS: #Basophils 0.1 thou/uL (0.0-0.2); #Eosinphils 0.6 thou/uL (0.0-0.7); #Lymphocytes 2.5 thou/uL (1.20-3.40); #Monocytes 1.1 thou/uL (0.11-0.59); #Neutrophils 7.7 thou/uL (1.40-6.50); %Basophils 0.8 % (0.0-1.0); %Eosinophils 4.6 % (0.0-10.0); %Monocytes 9.3 % (0.0-10.0); %Neutrophils 64.4 % (42.0-75.0); Hemoglobin 11.5 g/dL (14.0-18.0); Mean Corpuscular Volume 81.5 fL (78.0-98.0); Mean Platelet Volume 6.1 fL (7.4-10.4); Platelet Count 410 thou/uL (130-400); RBC Distribution Width 16.5 % (11.5-14.5); Red Blood Cell (RBC) Count 4.41 mill/uL (4.70-6.10)
[2019-01-20 10:27] LABS: Anion Gap 17 mmol/L (10-20); BUN (Urea Nitrogen) 32 mg/dL (8.4-25.7); Calc. Creatinine Clearance 35 mL/min (70-130); Calcium 10.4 mg/dL (7.8-10.44); Carbon Dioxide 25 mmol/L (23-31); Chloride 98 mmol/L (98-107); Estimated GFR-MDRD 40; Glucose 89 mg/dL (83-110); Potassium 4.8 mmol/L (3.5-5.1); Sodium 135 mmol/L (136-145)
[2019-01-20] MEDS ORDERED: Lidocaine 1% w/Epinephrine 1:100K 20 ML VIAL ONE (11:22)
[2019-01-20] MEDS ORDERED: Fentanyl 100 MCG/2 ML VIAL ONE ×2 (11:38→13:44)
[2019-01-20] MEDS ORDERED: Bacitracin Zinc Ointment 30 gm TUBE ONE (12:40)
[2019-01-20] MEDS ORDERED: PROPOFOL 200 MG/20 ML VIAL ONE (16:33)
[2019-01-20] MEDS ORDERED: Dexamethasone 20 MG/5 ML VIAL ONE (16:33)
[2019-01-20] MEDS ORDERED: Ondansetron PF 4 MG/2 ML Vial ONE (16:33)
[2019-01-20] MEDS ORDERED: PHENYLEPHRINE-NS 100 MCG/ML 10 ML SYRINGE ONE (16:33)
[2019-01-20] MEDS ORDERED: HYDROcodone/Acetaminophen 5/325 mg Tablet ONE (17:53)
--- NOTE | 2019-01-21 12:43 | OP ---
DATE OF PROCEDURE: 01/20/2019 PREOPERATIVE DIAGNOSIS: Left ear basal cell carcinoma. POSTOPERATIVE DIAGNOSIS: Left ear basal cell carcinoma. PROCEDURE PERFORMED: Partial auriculectomy with complex closure. COMPLICATIONS: None. ANESTHESIA: LMA. DESCRIPTION OF PROCEDURE: The patient was taken to the operating room and placed supine on the table. LMA anesthesia was obtained by the anesthesia staff. Left ear was prepped and draped in standard surgical fashion. A large 2.5/3 cm exfoliated lesion in the mid portion of the todd bowl and conchal cymba was identified using a wide margin around this area excision through skin cartilage and posterior auricular skin was performed. It was then wedged out laterally through the ear skin. Margins were sent and were cleared for any signs of malignancy, following this, the wound was closed in multiple layers including the posterior auricular skin, [id number] stitches of Monocryl placed within the cartilage to reapproximate the edges and then the anterior skin was closed using chromic gut stitches. The patient tolerated the procedure well. Job ID: [id number]
== END 2019-01-20 19:15 | disposition home or self-care (01) ==
LOC: SDC 08:38
PROVIDERS: ATTEND Otolaryngology Plastic Surgery within the Head & Neck
PROC: 09B1XZZ Excision of Left External Ear, External Approach (ICD-10-PCS; principal; 2019-01-20)
DX: C44.219 Basal cell carcinoma of skin of left ear and external auricular canal (principal); L57.0 Actinic keratosis; I11.0 Hypertensive heart disease with heart failure; I50.9 Heart failure, unspecified; E78.5 Hyperlipidemia, unspecified; J44.9 Chronic obstructive pulmonary disease, unspecified; J18.9 Pneumonia, unspecified organism; Z97.4 Presence of external hearing-aid; Z87.891 Personal history of nicotine dependence
CPT/HCPCS: 36415; 80048; 85025; 88305; 88331; J1100; J2001; J2405; J2704; J3010

== ENCOUNTER 2019-03-17 16:22 | Outpatient (CLI) | payer MEDICARE, OTHER ==
--- NOTE | 2019-03-17 17:42 | RAD ---
PA AND LATERAL CHEST X-RAY 03/17/19 HISTORY: Lymphoma, left lower lobe pulmonary nodule. COMPARISON: 12/17/18. FINDINGS: Postsurgical changes related to median sternotomy are again noted. There is scarring and radiopaque s uture material again seen overlying the lateral right mid lung zone with linear areas of scarring see n in the mid lung zones and at each lung base overall similar to the prior study. There is stable are a of pleural thickening seen at the posterolateral left mid and lower lung zones. No new area of cons olidation or pleural fluid is identified. The left lateral costophrenic angle is partially obscured. The cardiac silhouette is mildly enlarged. Pulmonary vasculature is within normal limits. There are v ascular calcifications seen in the thoracic aorta. No other interval change. IMPRESSION: Stable chronic lung changes. Chest is overall stable compared to studies on 12/17/18 and 11/04/18. POS: [facility]
== END 2019-03-17 16:23 | disposition home or self-care (01) ==
LOC: BICRAD 16:22
PROVIDERS: ATTEND Internal Medicine Medical Oncology
DX: C83.18 Mantle cell lymphoma, lymph nodes of multiple sites (principal); R91.1 Solitary pulmonary nodule; R91.8 Other nonspecific abnormal finding of lung field
CPT/HCPCS: 36415; 71046; 80053; 82248; 83615; 84100; 84550

== ENCOUNTER 2019-06-01 14:59 | Inpatient (IN) | payer MEDICARE, OTHER ==
--- NOTE | 2019-06-01 15:32 | RAD ---
XR Chest 1 View Portable HISTORY: Dyspnea COMPARISON: 05/04/2019 FINDINGS: Changes of median sternotomy are again seen. The heart size is stable. There is been interval placem ent of a left upper extremity PICC line with tip in the projection of the cavoatrial junction. No pneumothoraces are seen. Chronic changes are again seen with new superimposed infiltrates in the lowe r lung zones. Small pleural effusions cannot be excluded.
[2019-06-01 16:19] LABS: Bilirubin Negative (Negative); Blood, Urine 1+ (Negative); Clarity Clear (Clear); Glucose, Urine (Dipstick) Normal (Negative); Leukocyte Negative Leu/uL (Negative); Nitrite Negative (Negative); Protein, Urine (Dipstick) 100 mg/dL (Neg-Trace); RBC/HPF 0-3 HPF (0-3); Squamous Epithelial 0-3 HPF (0-3); Urobilinogen Normal mg/dL (Less than 2); WBC/HPF 0-3 HPF (0-3)
[2019-06-01 16:26] LABS: Bacteria/HPF 2+ HPF (None Seen)
[2019-06-01 16:27] LABS: #Eosinphils 0.1 thou/uL (0.0-0.7); #Lymphocytes 1.1 thou/uL (1.20-3.40); #Monocytes 1.2 thou/uL (0.11-0.59); #Neutrophils 9.8 thou/uL (1.40-6.50); %Basophils 0.1 % (0.0-1.0); %Eosinophils 0.8 % (0.0-10.0); %Lymphocytes 8.9 % (21.0-51.0); %Monocytes 9.5 % (0.0-10.0); %Neutrophils 80.7 % (42.0-75.0); Hemoglobin 8.5 g/dL (14.0-18.0); Mean Corpuscular HGB CONC 33.7 g/dL (32.0-36.0); Mean Corpuscular Hemoglobin 27.1 pg (27.0-31.0); Mean Corpuscular Volume 80.4 fL (78.0-98.0); Mean Platelet Volume 7.2 fL (7.4-10.4); Platelet Count 294 thou/uL (130-400); RBC Distribution Width 16.3 % (11.5-14.5); Red Blood Cell (RBC) Count 3.12 mill/uL (4.70-6.10); White Blood Cell (WBC) Count 12.1 thou/uL (4.8-10.8)
[2019-06-01 16:47] LABS: ALT (SGPT) 12 U/L (8-55); AST (SGOT) 21 U/L (5-34); Albumin 3.2 g/dL (3.4-4.8); Alkaline Phosphatase 263 U/L (40-150); Anion Gap 17 mmol/L (10-20); BUN (Urea Nitrogen) 76 mg/dL (8.4-25.7); Bilirubin, Total 0.7 mg/dL (0.2-1.2); Calc. Creatinine Clearance 0 mL/min (70-130); Calcium 9.9 mg/dL (7.8-10.44); Carbon Dioxide 24 mmol/L (23-31); Chloride 94 mmol/L (98-107); Estimated GFR-MDRD 14; Globulin 2.6 g/dL (2.4-3.5); Glucose 127 mg/dL (83-110); Potassium 4.5 mmol/L (3.5-5.1); Protein, Total 5.8 g/dL (5.8-8.1); Sodium 130 mmol/L (136-145)
[2019-06-01 17:09] LABS: CKMB 5.8 ng/mL (0-6.6)
[2019-06-01] MEDS ORDERED: Aspirin Chewable 81 MG TAB ONE (17:21)
[2019-06-01] MEDS ORDERED: Furosemide 20 MG/2 ML VIAL ONE (17:21)
[2019-06-01] MEDS ORDERED: Aspirin 325 MG TAB ONE (18:02)
[2019-06-01] MEDS ORDERED: Acetaminophen 325 MG TAB PO PRN (18:04)
[2019-06-01] MEDS ORDERED: Ondansetron ODT 4 MG TAB PO PRN (18:04)
[2019-06-01] MEDS ORDERED: Ondansetron PF 4 MG/2 ML Vial IVP PRN (18:04)
[2019-06-01] MEDS ORDERED: Acetaminophen 650 MG Suppository PR PRN (18:04)
[2019-06-01] MEDS ORDERED: Sodium Chloride 0.9% 1,000 ML IV SCH (18:15)
[2019-06-01] MEDS ORDERED: PROVENTIL INHALER 6.7 G (200 INHALATIONS) INH PRN (18:24)
--- NOTE | 2019-06-01 18:36 | PDOC.HHP ---
Hospitalist HPI - History of Present Illness Fall/SOB History of Present Illness: Mr. Goddard lives alone in an apartment and was found this morning by his daughter laying on the floor undressed and in feces/urine. He reported being down on the ground for 5 hours. Fall was unwitnessed, he was conscious and "worked up" when he was found. He was hyperventilating and appeared to be panicking. Patient states he was weak in the legs and slid to the ground between the dresser and his IV pole. He is currently receiving antibiotics for osteomyelitis since discharged on 05/12/19. (Rocephin and Daptomycin). Patient had attended the appointment for assessment to be moved into an assisted living facility and was referred to the ED due to hypotension. Also reported to be SOB. He is on oxygen at baseline due to hx of COPD. Per family at bedside his breathing it as baseline. Patient has not had any fevers, chills, or sweats. Has had very good care of his PICC line. He was fully oriented this morning but since arriving to the ED is slightly disoriented unable to recall the year. ALLERGIES: Clindamycin, Penicillins, Meropenem, Morphine, Vancomycin. HOME MEDICATIONS: 1. Rocephin. 2. Daptomycin. 3. Florastor. 4. Tramadol. 5. Flomax. 6. Mirapex. 7. Protonix. 8. Theragran-M. 9. Toprol-XL. 10. Gabapentin. 11. Lasix. 12. Docusate. 13. Aspirin. 14. Albuterol. ED Course: In the ED he underwent a chest xray showing bilateral infiltrates at the bases. Given elevated BNP of 756 he was given Lasix 60 mg IV. Labs were also notable for elevated WCC 12.1 and a normal lactic acid. Renal function was significantly elevated from baseline with BUN of 76, creatinine of 4.02, and GFR 14 (previously 39). Troponin was 0.048. He was given Aspirin 325 mg PO. An EKG showed Afib with PVCs, HR 97. Hospitalist ROS - Review of Systems Constitutional: reports: weakness (generally weak, mostly sedentary). denies: fever, chills, sweats, malaise, other Eyes: denies: pain, vision change, conjunctivae inflammation, eyelid inflammation, redness, other ENT: denies: ear pain, ear discharge, nose pain, nose discharge, nose congestion , mouth pain, mouth swelling, throat pain, throat swelling, other Respiratory: reports: shortness of breath. denies: cough, dry, hemoptysis, SOB with excertion, pleuritic pain, sputum, wheezing, other Cardiovascular: reports: edema (trace BLE edema). denies: chest pain, palpitations, orthopnea, paroxysmal noc. dyspnea, light headedness, other Gastrointestinal: denies: nausea, vomiting, abdominal pain, diarrhea, constipation, melena, hematochezia, other Genitourinary: reports: frequency (due to lasix given in ED.). denies: dysuria , incontinence, hematuria, retention, other Musculoskeletal: reports: back pain (lower back pain with long standing pressure ulcer). denies: neck pain, shoulder pain, arm pain, hand pain, leg pain, foot pain, other Skin: denies: rash, lesions, jimbo, bruising, other Neurological: reports: confusion (unable to recall year, oriented to person, place, day of the week. 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 - Family History Family History: reports: no pertinent history - Social History Smoking Status: Former smoker Alcohol: reports: None Drugs: reports: none - Exam General Appearance: NAD General - other findings: Head: Normocephalic and atraumatic Eye: PERRL, anicteric sclera ENT: normocephalic atraumatic, no oropharyngeal lesions, moist mucosa Neck: supple, no lymphadenopathy Heart: no murmur, no gallops, irregular Respiratory: no wheezes, normal chest expansion Respiratory - other findings: crackles bilaterally Gastrointestinal: soft, non-tender, non-distended, normal bowel sounds, no palpable masses Extremities - other findings: trace edema, left foot, s/p amputation, no erythema, wamrth, well healed Skin: no lesions, no rashes Neurological: normal sensation to touch, no focal deficits Musculoskeletal: normal tone, generalized weakness Psychiatric: oriented to person (not oriented to year), oriented to place Hospitalist Results - Labs Result Diagrams: 06/01/19 16:17 06/01/19 16:17 Lab results: WBC 12.1 thou/uL (4.8-10.8) H 06/01/19 16:17 Hgb 8.5 g/dL (14.0-18.0) L 06/01/19 16:17 Hct 25.1 % (42.0-52.0) L 06/01/19 16:17 MCV 80.4 fL (78.0-98.0) 06/01/19 16:17 Plt Count 294 thou/uL (130-400) 06/01/19 16:17 Neutrophils % 80.7 % (42.0-75.0) H 06/01/19 16:17 Sodium 130 mmol/L (136-145) L 06/01/19 16:17 Potassium 4.5 mmol/L (3.5-5.1) 06/01/19 16:17 Chloride 94 mmol/L (98-107) L 06/01/19 16:17 Carbon Dioxide 24 mmol/L (23-31) 06/01/19 16:17 BUN 76 mg/dL (8.4-25.7) H 06/01/19 16:17 Creatinine 4.02 mg/dL (0.7-1.3) H 06/01/19 16:17 Glucose 127 mg/dL (83-110) H 06/01/19 16:17 Lactic Acid 1.2 mmol/L (0.5-2.2) 06/01/19 16:17 Calcium 9.9 mg/dL (7.8-10.44) 06/01/19 16:17 Total Bilirubin 0.7 mg/dL (0.2-1.2) 06/01/19 16:17 AST 21 U/L (5-34) 06/01/19 16:17 ALT 12 U/L (8-55) 06/01/19 16:17 Alkaline Phosphatase 263 U/L (40-150) H 06/01/19 16:17 CK-MB (CK-2) 5.8 ng/mL (0-6.6) 06/01/19 16:17 Troponin I 0.048 ng/mL (< 0.028) H 06/01/19 16:17 B-Natriuretic Peptide 756.4 pg/mL (0-100) H 06/01/19 16:17 Serum Total Protein 5.8 g/dL (5.8-8.1) 06/01/19 16:17 Albumin 3.2 g/dL (3.4-4.8) L 06/01/19 16:17 Urine Ketones Negative mg/dL (Negative) 06/01/19 16:00 Urine Blood 1+ (Negative) A 06/01/19 16:00 Urine Nitrite Negative (Negative) 06/01/19 16:00 Ur Leukocyte Esterase Negative Melissa/uL (Negative) 06/01/19 16:00 Urine RBC 0-3 HPF (0-3) 06/01/19 16:00 Urine WBC 0-3 HPF (0-3) 06/01/19 16:00 Ur Squamous Epith Cells 0-3 HPF (0-3) 06/01/19 16:00 Urine Bacteria 2+ HPF (None Seen) A 06/01/19 16:00 - Radiology Interpretation Chest x-ray Status: report reviewed by me (Chronic changes with superimposed infiltrates in lower lung zones, small pleural effusions cannot be excluded.) Hospitalist H&P A/P - Problem (1) SOB (shortness of breath) Code(s): R06.02 - SHORTNESS OF BREATH Status: Chronic Assessment and Plan: Presumed to be due to CHF exacerbation and COPD. Crackles on exam. Per family he is at baseline at present. On Oxygen at home. Start duonebs which he should be using at home but doesn't, according to family. (2) CHF exacerbation Code(s): I50.9 - HEART FAILURE, UNSPECIFIED Status: Chronic Assessment and Plan: BNP elevated from baseline at 746. Given Lasix 60 mg IV in ED. Continue his normal dose of Lasix 20 mg PO daily. Echo (last one done in 2017). (3) Hypotension Status: Acute Assessment and Plan: Likely due to volume depletion. Improving, continue to monitor. At present no signs of underlying infection. UA unremarkable. Orthostatic BPs. Gentle Hydration. (4) Osteomyelitis Code(s): M86.9 - OSTEOMYELITIS, UNSPECIFIED Status: Acute (5) Acute kidney injury Code(s): N17.9 - ACUTE KIDNEY FAILURE, UNSPECIFIED Status: Acute Assessment and Plan: Significantly reduced kidney function from baseline. Gentle hydration and nephrology given potential nephrotoxic medications and limited ability to hydrate given CHF. (6) Generalized weakness Code(s): R53.1 - WEAKNESS Status: Chronic Assessment and Plan: Likely due to dehydration. Unclear if any source for infection. WCC likely reactive. Procalcitonin added on. Found on ground early today by family. CK added on. (7) Chronic a-fib Code(s): I48.2 - CHRONIC ATRIAL FIBRILLATION Status: Chronic (8) Chronic constipation Code(s): K59.09 - OTHER CONSTIPATION Status: Chronic (9) DNAR (do not attempt resuscitation) Status: Chronic Assessment and Plan: Medical Power of Appliance Counselor is his ex- Tiny Ibanez. He has a DNAR in place. Consult placed to palliative care: goals of care. - Plan Plan: ABG. Duonebs. Orthostatic BPs. Gentle hydration. Labs added on: CK, procalcitonin, Mg. Stool softeners. Home meds reconciled. Monitor O2 and BP. Nephrology consult. Echo. CT Chest and Brain CT. Patient discussed and will be seen by Dr. Yeung. ADDENDUM: Notified by RN, re: patient with persistently low BP and labored breathing. Difficulty waking him. Patient with BP in 70s/40s. HR 60s, normal temp. CT Chest and Brain results reviewed and discussed with his MPOA/Ex Tiny Ibanez. She states he had abnormal speech when found this morning, dysarthria continued with he was assessed earlier today during his appointment. States he is not normally confused, seems more disoriented. Discussed with Dr. Yeung who did see patient following initial assessment and again now. Patient is DNI/DNR. Patient had agreed to BiPap earlier though he does not wish to have this for more than 24 hours. He has deteriorated further since then. Sats have been maintained however increased WOB. Dr. Yeung advised transfer to CCU with plans to start levophed for BP and BiPAP. Ms. Ibanez is agreeable, she foresees no further interventions will be wanted beyond that, and this would be to help maintain him until daughter and daughter in law come in the morning to see him. Otherwise will likely proceed with comfort measures only in AM. Palliative care consult placed. Patient transfered to CCU and Levophed started.
[2019-06-01 18:39] LABS: Magnesium 2.1 mg/dL (1.6-2.6)
[2019-06-01 19:09] LABS: Troponin I 0.055 ng/mL (< 0.028)
[2019-06-01 20:11] LABS: Actual Bicarbonate (HCO3a) 24.1 mEq/L (22-28); Base Excess (BEa) 1.3 mEq/L (-2.0 to +3.0); CO2 Tension 31.2 mmHg (35.0-45.0); Calcium, Ionized 1.29 mmol/L (1.12-1.30); Carboxyhemoglobin (COHb) 1.4 gm% (0.0-3.0); Hemoglobin (Hb) 8.9 g/dL (14.0-18.0); Potassium - ABG Lab 4.03 mmol/L (3.70-5.30); pH, Arterial 7.51 (7.35-7.45)
[2019-06-01 20:12] LABS: O2 Tension (PaO2) 57.9 mmHg (> 60.0); Puncture Site RRA
[2019-06-01] MEDS: Pramipexole Di-HCl 0.25 MG TAB PO SCH (22:04)
[2019-06-01] MEDS: Saccharomyces boulardii 250 MG CAP PO SCH (22:04)
--- NOTE | 2019-06-01 22:48 | CT ---
EXAM: CT brain without contrast HISTORY: Altered mental status and confusion status post fall COMPARISON: 07/13/2015 TECHNIQUE: Multiple contiguous axial images were obtained and a CT of the brain without contrast. FINDINGS: The brain is normal in morphology and attenuation without focal lesions or confluent areas of infarction. There is no evidence of hydrocephalus, intracranial hemorrhage, or extra-axial fluid collection. The calvarium and overlying soft tissues are unremarkable. The visualized paranasal sinuses and masto id air cells are well aerated. IMPRESSION: No evidence of acute intracranial abnormality
[2019-06-01 22:50] LABS: Troponin I 0.045 ng/mL (< 0.028)
--- NOTE | 2019-06-01 22:54 | CT ---
EXAM: CT of the chest without contrast HISTORY: Shortness of breath and crackles with possible infiltrates COMPARISON: 10/22/2016 TECHNIQUE: Multiple contiguous axial images were obtained in a CT the chest without contrast. Coronal and sagittal reformats were performed. FINDINGS: HEART: Global cardiomegaly. Calcifications in the coronary arteries and aorta. MEDIASTINUM: Stable slightly prominent mediastinal lymph nodes. Evaluation of the mediastinum is limi bonita without IV contrast. LUNGS: Multifocal areas of groundglass attenuation are seen in the lungs which are new compared to th e prior examination and may represent superimposed infiltrates. Calcified granulomas are seen in the right lung. Bronchiectasis is seen in the lungs with cylindrical bronchiectasis in the right lowe r lobe. Some of the dilated bronchi are filled with fluid giving the appearance of multiple right lower lobe masses. Atelectasis is seen in the lung bases. PLEURAL SPACE: A small left pleural effusion. CHEST WALL SOFT TISSUES: Unremarkable OSSEOUS STRUCTURES: Degenerative changes in the spine. VISUALIZED SUBDIAPHRAGMATIC STRUCTURES: Unremarkable IMPRESSION: Chronic changes in the lungs including bronchiectasis with superimposed groundglass attenuation acute infiltrates.
[2019-06-02] MEDS ORDERED: Norepinephrine 8 MG/0.9% NS 250 ML IVPB SCH (00:45)
[2019-06-02 00:53] LABS: ALV-art Gradient 42.605 (0-20); Base Excess (BEa) 1.5 mEq/L (-2.0 to +3.0); CO2 Tension 34.5 mmHg (35.0-45.0); Calcium, Ionized 1.28 mmol/L (1.12-1.30); Carboxyhemoglobin (COHb) 1.6 gm% (0.0-3.0); Hemoglobin (Hb) 8.3 g/dL (14.0-18.0); Puncture Site RRA; pH, Arterial 7.48 (7.35-7.45)
[2019-06-02] MEDS ORDERED: Norepinephrine 8 MG in Dextrose 5% in Water 250 ML IVPB SCH (01:30)
[2019-06-02 05:11] VITALS: BMI 24.7
[2019-06-02 05:30] LABS: #Eosinphils 0.1 thou/uL (0.0-0.7); #Lymphocytes 1.3 thou/uL (1.20-3.40); #Monocytes 1.3 thou/uL (0.11-0.59); #Neutrophils 10.6 thou/uL (1.40-6.50); %Basophils 0.1 % (0.0-1.0); %Eosinophils 0.7 % (0.0-10.0); %Lymphocytes 9.4 % (21.0-51.0); %Monocytes 9.7 % (0.0-10.0); %Neutrophils 80.1 % (42.0-75.0); Hemoglobin 8.2 g/dL (14.0-18.0); Mean Corpuscular HGB CONC 32.4 g/dL (32.0-36.0); Mean Corpuscular Hemoglobin 26.7 pg (27.0-31.0); Mean Corpuscular Volume 82.3 fL (78.0-98.0); Mean Platelet Volume 7.2 fL (7.4-10.4); Platelet Count 324 thou/uL (130-400); RBC Distribution Width 16.5 % (11.5-14.5); Red Blood Cell (RBC) Count 3.07 mill/uL (4.70-6.10); White Blood Cell (WBC) Count 13.2 thou/uL (4.8-10.8)
[2019-06-02 05:37] LABS: INR-International Normal Ratio 1.4; PTT 43.6 SEC (22.9-36.1)
[2019-06-02 05:58] LABS: Anion Gap 17 mmol/L (10-20); BUN (Urea Nitrogen) 77 mg/dL (8.4-25.7); Calc. Creatinine Clearance 12 mL/min (70-130); Calcium 10.4 mg/dL (7.8-10.44); Carbon Dioxide 23 mmol/L (23-31); Cardiac Risk 3.6 (Less than 4.5); Chloride 93 mmol/L (98-107); Cholesterol 113 mg/dl (< 200 Desired); Estimated GFR-MDRD 12; Glucose 135 mg/dL (83-110); HDL Cholesterol 31 mg/dL (>60 Neg Risk); LDL Cholesterol, Calculated 72 mg/dL; Potassium 3.6 mmol/L (3.5-5.1); Sodium 129 mmol/L (136-145); Triglycerides 48 mg/dL (Less than 150)
[2019-06-02] MEDS ORDERED: cefTRIAXone\\ROCEPHIN 2 GM in Sodium Chloride 0.9% 100 ML IVPB SCH (06:00)
[2019-06-02] MEDS ORDERED: DAPTOmycin 500 MG in Sodium Chloride 0.9% 100 ML IVPB SCH (08:00)
[2019-06-02] MEDS ORDERED: Furosemide 20 MG/2 ML VIAL SLOW IVP SCH (09:00)
[2019-06-02] MEDS ORDERED: Aspirin 325 MG TAB PO SCH (09:00)
[2019-06-02] MEDS: Pramipexole Di-HCl 0.25 MG TAB PO SCH ×2 (09:19→15:33)
[2019-06-02] MEDS ORDERED: Sodium Chloride 0.9% 1,000 ML IV SCH ×2 (09:30→21:15)
--- NOTE | 2019-06-02 10:29 | CON ---
DATE OF CONSULTATION: 06/02/2019 A 75 minutes of time. REASON FOR CONSULTATION: The patient is currently in the CCU. 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 In fact, he was scheduled to see me in the office yesterday, but instead was found at home unkept. He was brought into the emergency room for further evaluation. 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 PAST MEDICAL HISTORY: 1. Osteomyelitis. 2. Chronic systolic heart failure. 3. Recurrent atrial fibrillation. 4. Coronary artery disease. 5. Previous hemothorax. 6. Asthma. 7. Chronic respiratory failure, requiring intermittent oxygen. PAST SURGICAL HISTORY: 1. Left thoracentesis. 2. Right knee surgery. 3. Left toe amputations. 4. Colon resection. 5. Coronary artery bypass grafting surgery. 6. Right foot surgery. 7. Hernia repair. 8. Carotid endarterectomy. SOCIAL HISTORY: Nonsmoker. Does not consume alcohol. ALLERGIES: CLINDAMYCIN, PENICILLIN, MEROPENEM, AND MORPHINE. MEDICATIONS: Prior to admission reviewed, listed in chart. REVIEW OF SYSTEMS: Hard to obtain because the patient is confused. PHYSICAL EXAMINATION: VITAL SIGNS: Temperature 98.2, pulse 97, blood pressure 105/61, and O2 saturation 98%. He is currently on a Levophed drip at 7.5 mcg/hour. GENERAL: He is elderly. He looks to be in very poor shape. HEENT: Bitemporal wasting present. Oropharynx dry. NECK: No adenopathy or JVD. CARDIAC: S1 and S2. Regular. No murmur. LUNGS: Clear breath sounds. ABDOMEN: Soft and nontender. EXTREMITIES: He has had all his toes amputated on the left foot. Incisions appear to be healing well. LABORATORY DATA: White blood cell count 13.2, hematocrit 25.3, and platelet count 354. INR 1.4. A pH of 7.48, pCO2 of 34, and pO2 of 64. Sodium 129, potassium 3.6, chloride 93, CO2 of 23, BUN 77, creatinine 4.6, and glucose 135. His chest CT showed infiltrative changes. Some of these may be chronic. ASSESSMENT: Multiple medical problems including osteomyelitis, advanced age, chronic systolic heart failure, and chronic renal insufficiency. I have a feeling that he is probably clinically dry. PLAN: I am going to give him a fluid challenge and see how he does with that. We will continue antibiotics. The family is leaning towards palliative care and may discontinue the Levophed later. Job ID: [id number]
[2019-06-02] MEDS: Saccharomyces boulardii 250 MG CAP PO SCH (10:31)
[2019-06-02] MEDS: Lorazepam 2 MG/ML VIAL SLOW IVP PRN ×2 (12:16→21:11)
--- NOTE | 2019-06-02 19:06 | PRG ---
DATE OF SERVICE: 06/02/2019 SUBJECTIVE: The patient was just given IV Ativan injection for his agitation and anxiety, and he is in very deep sleep, non-arousable at this moment. OBJECTIVE: VITAL SIGNS: Blood pressure is 126/60, pulse is 93, respiratory rate is 22, O2 saturation is 98% on 2 L by nasal cannula. GENERAL: As I mentioned above, he is in deep coma, non-arousable at this moment. LUNGS: Breath sounds are diminished at both bases. HEART: S1, S2 normal. No S3. No S4. ABDOMEN: Soft, nondistended. EXTREMITIES: No clubbing, cyanosis, or edema. NEUROLOGICAL: Examination is postponed since he is under influence of Ativan injection and he is not arousable. LABORATORY DATA: Labs showed white count of 13.2, hemoglobin 8.2, hematocrit 25.3, platelet count is 324,000. ABGs showed pH of 7.48, pCO2 of 34.5, pO2 of 64.0, and base excess is 1.5. Sodium of 129, potassium 3.6, chloride 93, CO2 of 23, BUN 77, creatinine 4.63, glucose is 135, calcium is 10.4. IMPRESSION AND PLAN: 1. Hypotension, requiring IV fluids and vasopressors. At this moment, the patient is on 2 mcg of Levophed. His blood pressure is holding in 120s. 2. Osteomyelitis of the left foot, status post partial amputation. 3. Acute kidney injury. 4. Chronic atrial fibrillation. 5. 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 Apparently, the patient is on oxygen at home. We will continue DuoNeb and refractory tile helper is going to make decision about the next step. According to my information, the family is willing to lean more towards hospice care. At this point, he is a do not attempt resuscitation and for now, we will continue his current regimen and if the family makes decision about discontinuation of any aggressive treatments, we will act appropriately. Job ID: [id number]
[2019-06-02] MEDS ORDERED: Acetaminophen 650 MG Suppository PR PRN (21:05)
[2019-06-02] MEDS ORDERED: Acetaminophen 325 MG TAB PO PRN (21:05)
[2019-06-02] MEDS ORDERED: PROVENTIL INHALER 6.7 G (200 INHALATIONS) INH PRN (21:05)
[2019-06-02] MEDS ORDERED: Ondansetron ODT 4 MG TAB PO PRN (21:10)
[2019-06-02] MEDS ORDERED: Ondansetron PF 4 MG/2 ML Vial IVP PRN (21:10)
[2019-06-03] MEDS: Lorazepam 2 MG/ML VIAL SLOW IVP PRN ×2 (00:47→11:25)
[2019-06-03] MEDS ORDERED: Scopolamine 1.5 mg/72 hour Patch TD SCH (01:30)
[2019-06-03] MEDS ORDERED: cefTRIAXone\\ROCEPHIN 2 GM in Sodium Chloride 0.9% 100 ML IVPB SCH (06:00)
[2019-06-03 07:19] VITALS: BP 109/57; TEMP 98
[2019-06-03] MEDS ORDERED: DAPTOmycin 500 MG in Sodium Chloride 0.9% 100 ML IVPB SCH (09:00)
[2019-06-03] MEDS ORDERED: Aspirin 325 MG TAB PO SCH (09:00)
[2019-06-03] MEDS ORDERED: Pramipexole Di-HCl 0.125 MG TAB PO SCH (09:00)
[2019-06-03] MEDS ORDERED: Saccharomyces boulardii 250 MG CAP PO SCH (09:00)
--- NOTE | 2019-06-03 09:51 | PRG ---
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 PHYSICAL EXAMINATION: LUNGS: Demonstrates agonal breathing. CARDIAC: Regular. ABDOMEN: Soft. ASSESSMENT: The patient is terminal and very close to . PLAN: Continue comfort medications. Job ID: [id number]
--- NOTE | 2019-06-03 14:59 | PRG ---
DATE OF SERVICE: 06/03/2019 SUBJECTIVE: The patient's family decided about comfort measures. They did not agree with hospice services, so all medications were stopped except for Ativan, p.r.n. scopolamine patch, which was started last night. OBJECTIVE: VITAL SIGNS: The patient's respirations are in 30s. He is on oxygen by nasal cannula. His blood pressure is 109/57, pulse is 128, temperature is 98.0. Respirations are as I mentioned above, about 30 and O2 saturation is about 80%. We will comfort him in his last time. Job ID: [id number]
--- NOTE | 2019-06-03 15:49 | PQF ---
ANGEL CANCHOLA,LESLEE REID MD [id number] ONC-136 [id number] CLINICAL DOCUMENTATION IMPROVEMENT CLARIFICATION FORM: ICD-10 Updated PLEASE DO AN ADDENDUM TO THE PROGRESS NOTE WITH ANY DOCUMENTATION UPDATES OR ADDITIONS AND CARRY THROUGH TO DC SUMMARY. THANK YOU. DATE: 06/03/19 ATTN:DR. Nica JONES Please exercise your independent, professional judgment in responding to the clarification form. Clinical indicators are provided on the bottom of this form for your review. Please check appropriate box(s): [ ] Hyponatremia please specify etiology, if known [ ] Hyponatremia due to SIADH (Syndrome of Inappropriate Secretion of Antidiuretic Hormone) [ ] Other diagnosis [ ] Unable to determine In addition, please specify: Present on Admission (POA): [ ] Yes [ ] No [ ] Unable to determine CLINICAL INDICATORS - SIGNS / SYMPTOMS / LABS 06/01 SODIUM 130 06/02 SODIUM 129 RISK: ACUTE KIDNEY INJURY (H&P/[facility]-06/01) TERMINAL (PN/[facility]-06/03) TREATMENTS: 0.9% SODIUM CHLORIDE IV FLUIDS (06/02) SERIAL LABS (06/01-06/02) THANK YOU! SULMA (This form is maintained as a part of the permanent medical record) 2014 [email or web address]. All Rights Reserved [email or web address] [phone] MTDD
--- NOTE | 2019-06-03 16:09 | PQF ---
ANGEL CANCHOLA,LESLEE REID MD [id number] ONC-136 [id number] CLINICAL DOCUMENTATION IMPROVEMENT CLARIFICATION FORM: ICD-10 Updated PLEASE DO AN ADDENDUM TO THE PROGRESS NOTE WITH ANY DOCUMENTATION UPDATES OR ADDITIONS AND CARRY THROUGH TO DC SUMMARY. THANK YOU. DATE: 06/03/19 ATTN:DR. Nica JONES Please exercise your independent, professional judgment in responding to the clarification form. Clinical indicators are provided on the bottom of this form for your review. Please check appropriate box(s): [ x ] Acute On Chronic Respiratory Failure: [ ] with Hypoxia [ ] with Hypercapnia [ ] Chronic Respiratory Failure only [ ] with Hypoxia [ ] with Hypercapnia [ ] Other diagnosis [ ] Unable to determine In addition, please specify: Present on Admission (POA): [ x ] Yes [ ] No [ ] Unable to determine For continuity of documentation, please document condition throughout progress notes and discharge summary. Thank You. CLINICAL INDICATORS - SIGNS / SYMPTOMS / LABS 06/01 ED REPORT: O2 SATS 84-94%RA> 94-99%3L/NC 06/02 CONSULT ([facility]) PAST MEDICAL HISTORY: 7) CHRONIC RESPIRATORY FAILURE, REQUIRING INTERMITTENT OXYGEN, 06/02 PN ([facility]) RESP RATE IS 22, Y3MITOCSEFNI IS 98% ON 2LBY NASAL CANNULA. ASSESSMENT: 5) SOB, MOST LIKELY COMBINED CHF AND COPD. APPARENTLY , THE PATIENT IS ON OXYGEN AT HOME. 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 HIS FAMILY SAYS HE IS FAIRLY UNRESPONSIVE TO STIMULI NOW ANS IS NOT WAKING UP AND COMMUNICATING AT ALL. ASSESSMENT: THE PATIENT IS TERMINAL AND VERY CLOSE TO RISK: ACUTE SYSTOLIC CHF, SOB (H&P/[facility]) 06/01 HX CHRONIC RESP FAILURE REQUIRING INTERMITTENT OXYGEN (CONSULT/[facility]) TREATMENTS: PULMONOLOGY CONSULT ( 06/02/[facility]) SUPPLEMENTAL OXYGEN ( 06/01-PRESENT) THANK YOU! SULMA (This form is maintained as a part of the permanent medical record) 2014 [employer]. All Rights Reserved [email or web address] [phone] [facility] HOSPITALPerez
--- NOTE | 2019-06-04 12:37 | PQF ---
ANGEL CANCHOLA,LESLEE REID MD [id number] ONC-136 [id number] CLINICAL DOCUMENTATION IMPROVEMENT CLARIFICATION FORM: ICD-10 Updated PLEASE DO AN ADDENDUM TO THE PROGRESS NOTE WITH ANY DOCUMENTATION UPDATES OR ADDITIONS AND CARRY THROUGH TO DC SUMMARY. THANK YOU. DATE: 06/04/19 ATTN:DR. Nica JONES Please exercise your independent, professional judgment in responding to the clarification form. Clinical indicators are provided on the bottom of this form for your review. Please check appropriate box(s): [ ] Hyponatremia please specify etiology, if known [ ] Hyponatremia due to SIADH (Syndrome of Inappropriate Secretion of Antidiuretic Hormone) [ ] Other diagnosis [ x] Unable to determine In addition, please specify: Present on Admission (POA): [ x] Yes [ ] No [ ] Unable to determine CLINICAL INDICATORS - SIGNS / SYMPTOMS / LABS 06/01 SODIUM 130 06/02 SODIUM 129 RISK: ACUTE KIDNEY INJURY (H&P/P[facility]TMAN-06/01) TREATMENTS: 0.9% SODIUM CHLORIDE IV FLUIDS (06/02) SERIAL LABS (06/01-06/02) THANK YOU! SULMA (This form is maintained as a part of the permanent medical record) 2014 [employer] All Rights Reserved [email or web address] [phone] MTDD
--- NOTE | 2019-06-04 22:42 | DIS ---
DATE OF ADMISSION: 06/01/2019 DATE OF DISCHARGE: 06/04/2019 DIAGNOSES AT THE TIME OF ADMISSION: 1. Shortness of breath. 2. Congestive heart failure exacerbation. 3. Hypotension. 4. Osteomyelitis. 5. Acute kidney injury. 6. Generalized weakness. 7. Chronic atrial fibrillation. 8. Chronic constipation. 9. DNAR status. FINAL DIAGNOSES: 1. Acute on chronic congestive heart failure. 2. Acute on chronic obstructive pulmonary disease. 3. Hypotension. 4. Osteomyelitis of the left foot. 5. Acute kidney injury. 6. Chronic atrial fibrillation. 7. Generalized weakness. 8. Chronic constipation. 9. History of pneumonia. 10. History of mantle cell lymphoma. 11. History of seizures. 12. Hyperlipidemia. 13. History of colon polyps. 14. History of transient global amnesia. 15. Osteopenia. 16. Diverticulosis. 17. History of cellulitis of the left leg. CONSULTANTS: Dr. Jeff Rodriguez, Pulmonary/Critical Care Service. HOSPITAL COURSE: The patient was an 88-year-old male, who was just discharged from the hospital on IV antibiotics, Rocephin and daptomycin for his left foot osteomyelitis. Apparently, he was found by his daughter lying on the floor, undressed in feces and urine. Apparently, he reported to them it took her being down for 5 hours. His fall was unwitnessed since he lives alone. He was conscious when he was found. He was hyperventilating and being in some panic. He was taken to the emergency room and there was no history of fever, chills, or sweats. In the emergency department, he underwent chest x-ray which showed bilateral infiltrates at both bases. His BNP was elevated at 756. He was given Lasix for possible CHF exacerbation. His white count was elevated at 12.1 and his lactic acid was normal. His BUN was up to 76, creatinine was up to 4.02, troponin 0.048. He was given aspirin 325 mg once a day and had electrocardiogram, which showed atrial fibrillation with PVCs with heart rate of 97 beats per minute. He was placed on DuoNeb on some gentle hydration. Nephrology was consulted. Echocardiogram was scheduled and CT of the chest and brain were done, which showed no evidence of acute intracranial abnormality in the central nervous system and chronic changes in both lungs including bronchiectasis with superimposed ground-glass attenuation acute infiltrates. The patient required vasopressors to keep his blood pressure under control. The patient was seen by Dr. Rodriguez for Critical Care/Pulmonary evaluation. He recommended to continue IV fluids and after discussion with family, they chose not to continue any treatments. The patient was moved to Oncology floor after consultation with hospice, which was rejected by the family. He on 06/04/2019 at 7:01 and the body was released to the senior living. The patient admitted to the home. Job ID: [id number]
--- NOTE | 2019-06-05 13:35 | EKG ---
Test Reason : Blood Pressure : / mmHG Vent. Rate : 097 BPM Atrial Rate : 120 BPM P-R Int : 000 ms QRS Dur : 086 ms QT Int : 322 ms P-R-T Axes : 000 025 -12 degrees QTc Int : 408 ms Atrial fibrillation with premature ventricular or aberrantly conducted complexes Abnormal ECG Confirmed by MARRY SANCHEZ ([id number]), movie editor CORAL SPRINGER ([id number]) on 06/05/2019 1:35:08 PM Referred By: Confirmed By:MARRY SANCHEZ
== END 2019-06-03 17:33 | disposition hospice, inpatient (51) | DRG 291 ==
LOC: ERS 14:59 → 2NO 17:07 → CCU 06-02 00:57 → ONC 06-02 19:57
PROVIDERS: ADMIT Internal Medicine; ATTEND Internal Medicine
PROC: 3E033XZ Introduction of Vasopressor into Peripheral Vein, Percutaneous Approach (ICD-10-PCS; principal; 2019-06-01)
PROC: 02HV33Z Insertion of Infusion Device into Superior Vena Cava, Percutaneous Approach (ICD-10-PCS; 2019-06-01)
PROC: 5A09357 Assistance with Respiratory Ventilation, Less than 24 Consecutive Hours, Continuous Positive Airway Pressure (ICD-10-PCS; 2019-06-01)
DX: I13.0 Hypertensive heart and chronic kidney disease with heart failure and stage 1 through stage 4 chronic kidney disease, or unspecified chronic kidney disease (principal); I50.23 Acute on chronic systolic (congestive) heart failure; J96.20 Acute and chronic respiratory failure, unspecified whether with hypoxia or hypercapnia; N17.9 Acute kidney failure, unspecified; M86.172 Other acute osteomyelitis, left ankle and foot; J44.1 Chronic obstructive pulmonary disease with (acute) exacerbation; Z66 Do not resuscitate; I95.9 Hypotension, unspecified; I48.2 Chronic atrial fibrillation; K59.09 Other constipation; N18.9 Chronic kidney disease, unspecified; E78.5 Hyperlipidemia, unspecified; E78.00 Pure hypercholesterolemia, unspecified; I25.10 Atherosclerotic heart disease of native coronary artery without angina pectoris; Z87.01 Personal history of pneumonia (recurrent); Z85.72 Personal history of non-Hodgkin lymphomas; Z95.1 Presence of aortocoronary bypass graft; Z88.1 Allergy status to other antibiotic agents; Z88.5 Allergy status to narcotic agent; Z88.0 Allergy status to penicillin; Z88.8 Allergy status to other drugs, medicaments and biological substances; Z79.82 Long term (current) use of aspirin; Z79.899 Other long term (current) drug therapy; Z99.81 Dependence on supplemental oxygen; Z79.51 Long term (current) use of inhaled steroids; Z87.891 Personal history of nicotine dependence; Z90.49 Acquired absence of other specified parts of digestive tract; Z89.422 Acquired absence of other left toe(s)
CPT/HCPCS: 36415; 70450; 71045; 71250; 80048; 80053; 80061; 81003; 81015; 82550; 82553; 82805; 83605; 83735; 83880; 84145; 84484; 85025; 85610; 85730; 93005; 94640; 96374; J0696; J0878; J1940; J2060; J3490; J7070; J7620

== ENCOUNTER 2019-06-03 18:16 | Inpatient (IN) | payer OTHER ==
[2019-06-03] MEDS ORDERED: Scopolamine 1.5 mg/72 hour Patch TOP PRN (18:41)
[2019-06-03] MEDS ORDERED: Lorazepam 2 MG/ML VIAL SLOW IVP PRN (18:42)
[2019-06-03] MEDS ORDERED: HYDROmorphone 0.5 MG/0.5 ML SYRINGE SLOW IVP PRN (18:43)
[2019-06-03 19:35] VITALS: BMI 24.6
[2019-06-03 19:36] VITALS: BP 97/52; TEMP 98.2
--- NOTE | 2019-06-07 11:33 | DIS ---
DATE OF ADMISSION: 06/03/2019 DATE OF DISCHARGE: 06/04/2019 PRINCIPAL DIAGNOSES: 1. Cardiorespiratory failure. 2. Chronic obstructive pulmonary disease. 3. Atrial fibrillation. 4. Dyslipidemia. HOSPITAL COURSE: The patient was apparently admitted to the hospital with chronic systolic heart failure, acute on chronic kidney disease, and some ongoing treatment for osteomyelitis. He was recommended to be treated with IV fluids and antibiotics, but family decided on hospice care and so he was admitted to hospice. Comfort care was provided and patient rapidly declined and on 06/04/2019. Body was released to the home. For full details, please see chart. Job ID: [id number]
== END 2019-06-04 07:01 | disposition expired | DRG 951 ==
LOC: ONC 18:16
PROVIDERS: ADMIT Internal Medicine; ATTEND Internal Medicine
DX: Z51.5 Encounter for palliative care (principal); J96.90 Respiratory failure, unspecified, unspecified whether with hypoxia or hypercapnia; M86.9 Osteomyelitis, unspecified; N17.9 Acute kidney failure, unspecified; I50.22 Chronic systolic (congestive) heart failure; I95.9 Hypotension, unspecified; Z66 Do not resuscitate; R53.1 Weakness; E86.0 Dehydration; K59.09 Other constipation; I25.10 Atherosclerotic heart disease of native coronary artery without angina pectoris; E78.5 Hyperlipidemia, unspecified; J44.9 Chronic obstructive pulmonary disease, unspecified; I48.91 Unspecified atrial fibrillation; N18.9 Chronic kidney disease, unspecified; Z88.1 Allergy status to other antibiotic agents; Z88.0 Allergy status to penicillin; Z88.5 Allergy status to narcotic agent; Z95.1 Presence of aortocoronary bypass graft; Z87.891 Personal history of nicotine dependence
CPT/HCPCS: J2060